=== PATIENT | male | born 1955 | race Caucasian/White ===

== ENCOUNTER 2022-12-23 16:16 | Emergency (ER) | payer MEDICARE, MEDICAID, SELFPAY ==
[2022-12-23 16:28] VITALS: BP 171/105; PULSE 93; RESP 18; TEMP 36.9; O2SAT 91; BMI 25.8
--- NOTE | 2022-12-23 16:29 | ED.GENADULT ---
HPI - General Adult General Chief complaint: Allergic Reaction Stated complaint: bee sting allergic reaction Time Seen by Provider: 12/23/22 19:42 Source: patient Mode of arrival: ambulatory Limitations: no limitations Related Data Allergies Allergy/AdvReac Type Severity Reaction Status Date / Time bee pollen [BEE STINGS] Allergy Unknown ANAPHYLAXIS Verified 12/23/22 16:31 Physical Exam ED Vital Signs: Vital Signs - 24 hr 12/23/22 16:28 Temperature 98.5 F Pulse Rate 93 Respiratory Rate 18 Blood Pressure 171/105 H Pulse Oximetry 91 L Oxygen Delivery Method Room Air BMI result Body Mass Index 25.8 Course Course Course Narrative: This is an RME: Additional HPI, ROS, PE not included below will be deferred to primary provider. Lef ear swelling sp bee stink 1 hour ago. No cp,sob, nausea, vomiting Medications Administered Discontinued Medications Generic Name Dose Route Start Last Admin Trade Name Freq PRN Reason Stop Dose Admin Diphenhydramine HCl 50 mg 12/23/22 16:29 12/23/22 16:34 Diphenhydramine Hcl 25 Mg Capsule PO 12/23/22 16:30 50 mg ONCE ONE Administration Famotidine 20 mg 12/23/22 19:54 12/23/22 19:59 Famotidine 20 Mg Tablet PO 12/23/22 19:55 20 mg ONCE ONE Administration Prednisone 60 mg 12/23/22 19:54 12/23/22 19:59 Prednisone 20 Mg Tablet PO 12/23/22 19:55 60 mg ONCE ONE Administration
[2022-12-23] MEDS: diphenhydrAMINE HCL 25 MG CAPSULE 50 MG PO (16:34)
--- NOTE | 2022-12-23 19:58 | ED_ITS ---
HPI - Allergic Reaction General Chief complaint: Allergic Reaction Stated complaint: bee sting allergic reaction Time Seen by Provider: 12/23/22 19:42 Source: patient Mode of arrival: ambulatory Limitations: no limitations History of Present Illness HPI narrative: Patient comes to emergency room complaining of an allergic reaction, patient got stung by a bee behind his left ear. Patient states that usually he is very allergic to bee stings. This time, patient also had a mild rash. Patient was given Benadryl in the emergency room when he arrived and patient states that now he has no rash or itching. Today, patient had no difficulty breathing, wheezing or swallowing. At this time, patient states that he feels it almost back to baseline. Related Data Previous Rx's Medication Instructions Recorded diphenhydramine HCl 25 mg capsule 50 mg (2 x 25 mg) PO BEDTIME PRN 12/23/22 (Benadryl) allergic reaction #4 caps famotidine 40 mg tablet (Pepcid) 40 mg PO DAILY PRN allergic 12/23/22 reaction #2 tabs prednisone 50 mg tablet 50 mg PO DAILY PRN allergic 12/23/22 reaction #2 tabs Allergies Allergy/AdvReac Type Severity Reaction Status Date / Time bee pollen [BEE STINGS] Allergy Unknown ANAPHYLAXIS Verified 12/23/22 16:31 Review of Systems Review of Systems: Constitutional : No Weight loss, No Fever, No Chills, No Night Sweats, No Fatigue, No Malaise ENT/Mouth : No Hearing loss, No Ear Pain, No Nasal Congestion, No Sinus Pain, No Hoarseness, No sore throat, No Rhinorrhea, No Swallowing Difficulty Eyes: No Eye Pain, No Swelling, No Redness, No Foreign Body, No Discharge, No Vision Changes Cardiovascular : No Chest Pain, No SOB, No Dyspnea on Exertion, No Orthopnea, No Edema, No Palpitations Respiratory : No Cough, No Sputum, No Wheezing, No Smoke Exposure, No Dyspnea Gastrointestinal : No Nausea, No Vomiting, No Diarrhea, No Constipation, No abdominal Pain, No Hematochezia, No Melena Genitourinary : no irregular bleeding, No Dysuria, No Urinary Frequency, No Hematuria, No Urinary Incontinence, No Urgency, No Flank Pain, No Urinary Flow Changes, No Hesitancy Musculoskeletal : No joint pain, No Myalgias, No Joint Swelling Skin : Complaining of a bee sting to the skin on the left Neuro : No Weakness, No Numbness, No Paresthesias, No Loss of Consciousness, No Dizziness, No Headache Psych : No Anxiety/Panic, No Depression, No SI/HI/AH/VH, No Social Issues, Heme/Lymph: No Bruising, No Bleeding,No Lymphadenopathy Endocrine : No Polyuria, No Polydipsia, No Temperature Intolerance Physical Exam ED Vital Signs: Vital Signs - 24 hr 12/23/22 16:28 Temperature 98.5 F Pulse Rate 93 Respiratory Rate 18 Blood Pressure 171/105 H Pulse Oximetry 91 L Oxygen Delivery Method Room Air BMI result Body Mass Index 25.8 Const Other: Appearance: Alert. Oriented X3. No acute distress. Eyes: Pupils equal, round and reactive to light. ENT: Pharynx normal. Neck: Normal inspection. Neck supple. No lymph nodes noted. No crepitus CVS: Normal heart rate and rhythm. Pulses normal. Normal S1 and S2 Respiratory: No respiratory distress. Breath sounds normal. No Wheezing. No rales Abdomen: Soft and nontender. No rigidity. No distention. Skin: Skin warm and dry. Normal skin color. Normal skin turgor. Extremities: No lower extremity edema. No Lacerations. No Rash Neuro: Oriented X 3. No motor deficit. No sensory deficit. Moving all extremities. No slurred speech. CN 2 through 12 grossly intact Psych: calm, cooperative, normal affect Medications Administered Discontinued Medications Generic Name Dose Route Start Last Admin Trade Name Freq PRN Reason Stop Dose Admin Diphenhydramine HCl 50 mg 12/23/22 16:29 12/23/22 16:34 Diphenhydramine Hcl 25 Mg Capsule PO 12/23/22 16:30 50 mg ONCE ONE Administration Famotidine 20 mg 12/23/22 19:54 12/23/22 19:59 Famotidine 20 Mg Tablet PO 12/23/22 19:55 20 mg ONCE ONE Administration Prednisone 60 mg 12/23/22 19:54 12/23/22 19:59 Prednisone 20 Mg Tablet PO 12/23/22 19:55 60 mg ONCE ONE Administration Medical Decision Making Medical Decision Making [facility] Narrative: -patient was given a dose of Benadryl in the emergency department when he arrived. Patient longer having any symptoms. Also, additionally patient was given a dose of Pepcid p.o. and prednisone -patient ready for discharge. Differential Diagnosis Differential Diagnoses: The differential diagnosis associated with the presentation includes (Bee sting, insect bite, allergic reaction) Discharge Plan Discharge Clinical Impression: Bee sting Patient Disposition: Home, Self-Care Instructions: Insect Bite or Sting (ED) Additional Instructions: Please follow-up with your primary care physician tomorrow. If you have any worsening or new symptoms, please return to the emergency room or call 911 Prescriptions: New prednisone 50 mg tablet 50 mg PO DAILY PRN (Reason: allergic reaction) Qty: 2 0RF famotidine [Pepcid] 40 mg tablet 40 mg PO DAILY PRN (Reason: allergic reaction) Qty: 2 0RF diphenhydramine HCl [Benadryl] 25 mg capsule 50 mg PO BEDTIME PRN (Reason: allergic reaction) Qty: 4 0RF
[2022-12-23] MEDS: predniSONE 20 MG TABLET 60 MG PO (19:59)
[2022-12-23] MEDS: Famotidine 20 MG TABLET PO (19:59)
== END 2022-12-23 20:31 | disposition home or self-care (01) ==
LOC: HO.ED 20:31
PROVIDERS: Emergency Provider Emergency Medicine
DX: T63.441A Toxic effect of venom of bees, accidental (unintentional), initial encounter (principal); Y92.9 Unspecified place or not applicable
CPT/HCPCS: 99282; 99283

== ENCOUNTER 2023-06-30 12:19 | Outpatient (REF) | payer MEDICARE, MEDICAID, SELFPAY ==
[2023-06-30 14:36] LABS: Basophils Absolute Auto 0.1 X10*3/uL (0.0-0.2); Basophils Percent Auto 1.6 % (0-2); Eosinophils Absolute Auto 0.1 X10*3/uL (0.0-0.4); Eosinophils Percent Auto 1.1 % (0-4); Hematocrit 39.9 % (42.0-52.0); Imm Gran Abs Auto 0.08 X10*3/uL (0.00-0.03); Imm Gran Pct Auto 1.8 % (0.0-0.4); Lymphocytes Percent Auto 22.1 % (20-40); MANUAL DIFF FLAG SCAN; Mean Corpuscular HGB Conc 32.6 g/dl (31.0-36.0); Mean Corpuscular Hemoglobin 30.2 pg (27.0-33.0); Mean Corpuscular Volume 92.6 fL (80.0-98.0); Mean Platelet Volume 11.1 fL (9.4-12.4); Monocytes Percent Auto 21.9 % (2-11); Neutrophils Absolute Auto 2.3 x10*3/uL (2.0-8.3); Neutrophils Percent Auto 51.5 % (45-73); Platelet Count 117 X10*3/uL (160-400); Red Blood Count 4.31 X10*6/uL (4.60-5.80); Red Cell Distribution Width 14.5 % (11.0-16.0); SCAN SMEAR FLAG 1; White Blood Count 4.4 X10*3/uL (4.8-10.8)
[2023-06-30 14:40] LABS: Alanine Aminotransferase 19 U/L (0-40); Albumin Level 3.9 g/dL (3.5-5.0); Alkaline Phosphatase 94 U/L (39-117); Anion Gap 14 (12-20); Aspartate Amino Transferase 22 U/L (5-37); Bilirubin Total 0.2 mg/dL (0.0-1.0); Blood Urea Nitrogen 13 mg/dL (9-16); Calcium 8.9 mg/dL (8.4-10.2); Carbon Dioxide 27 mmol/L (22-29); Chloride 108 mmol/L (96-108); Estimated Glomerular Filt Rate > 60; Glucose Random 116 mg/dL (60-115); Sodium 145 mmol/L (135-145); Total Protein 6.3 g/dL (6.5-8.0)
[2023-06-30 14:53] LABS: SLIDE REVIEW VERIFIED
[2023-06-30 14:59] LABS: PSA,Total (Free>4and<10) 1.66 ng/mL (0.00-4.00)
== END 2023-06-30 12:20 | disposition home or self-care (01) ==
LOC: HO.CHCLDS 12:19
PROVIDERS: Visit Provider Internal Medicine
DX: M15.9 Polyosteoarthritis, unspecified (principal); N40.0 Benign prostatic hyperplasia without lower urinary tract symptoms; M25.532 Pain in left wrist; K40.90 Unilateral inguinal hernia, without obstruction or gangrene, not specified as recurrent; Z12.5 Encounter for screening for malignant neoplasm of prostate
CPT/HCPCS: 36415; 80053; 84153; 85025

== ENCOUNTER 2023-07-20 08:56 | Outpatient (AMB) | payer MEDICARE, MEDICAID, SELFPAY ==
--- NOTE | 2023-07-20 08:57 | A.OFFVIS_ITS ---
Vital Signs 07/20/23 09:16 Height 5 ft 7 in Weight 168 lb BMI 26.3 BP 159/83 H Blood Pressure Location Rt brachial Position Sitting Pulse 86 Intake Visit Reasons: inguinal hernia Intake Note: Patient referred for inguinal hernia. Hx of [facility] repair by Dr. Logan @ [facility]. Patient had to do a short course of lovenox after previous hernia surgery. Patient c/o: LLQ pain. Bulges out and has been able to push it back in but pain getting worse with time. 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 He has had this proximally 1 year's time. His increasing size,, symptomatic. With straining and coughing developed a bulge which will usually reduced itself. Patient has no other GI issues or complaints. He is quite active and does appreciable heavy lifting. Chart was reviewed patient evaluated. Patient has complex past history including right breast mastectomy for metastatic breast cancer. He had prior right inguinal hernia repair. 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 Status post right mastectomy. Well healed scar with radiation changes on the skin GI Other: Patient was examined both supine and standing with Valsalva. Right groin negative. Abdomen is soft, scaphoid, benign. Small irreducible/incarcerated umbilical hernia measuring approximately 2 cm in size. Moderately sized, reducible left inguinal hernia. Genitalia grossly within normal limits. Assessment & Plan Assessment & Plan (1) Umbilical hernia, incarcerated: Code(s): K42.0 - Umbilical hernia with obstruction, without gangrene Category: Surgical (2) Left inguinal hernia: Code(s): K40.90 - Unilateral inguinal hernia, without obstruction or gangrene, not s pecified as recurrent Category: Surgical Plan I discussed with the patient the risks, benefits, and alternatives of open left inguinal hernia repair with mesh under MAC which included but not limited to bleeding, infection, recurrence, numbness, pain, scarring the patient wished to proceed. Patient also has the incidentally found incarcerated umbilical hernia which he would like to have repaired at the same time. Risks, benefits and alternatives of open umbilical hernia repair with mesh reviewed with the patient and this also included but not limited to bleeding, infection, recurrence, numbness, pain, scarring, bowel injury and the patient wishes to proceed as well. All questions answered. Arrangements made for this. Coding Level of Care Code New Pt Level 5 (46953) Diagnoses Umbilical hernia, incarcerated K42.0 Left inguinal hernia K40.90
[2023-07-20 09:16] VITALS: BP 159/83; PULSE 86; BMI 26.3
== END 2023-07-20 09:36 | disposition home or self-care (01) ==
PROVIDERS: PCP Internal Medicine; Visit Provider Surgery
DX: K42.0 Umbilical hernia with obstruction, without gangrene (principal); K40.90 Unilateral inguinal hernia, without obstruction or gangrene, not specified as recurrent
CPT/HCPCS: 99204

== ENCOUNTER → 2023-07-20 08:56 | Outpatient (BNVA) | payer MEDICARE, MEDICAID, SELFPAY | PROVIDERS: PCP Internal Medicine; Visit Provider Surgery | DX: K42.0 Umbilical hernia with obstruction, without gangrene (principal); K40.90 Unilateral inguinal hernia, without obstruction or gangrene, not specified as recurrent | CPT/HCPCS: 99202 ==

== ENCOUNTER 2023-08-04 07:21 | Day surgery (SDC) | payer MEDICARE, MEDICAID, SELFPAY ==
--- NOTE | 2023-08-02 13:18 | HO.ANESPROP2 ---
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 Breast cancer of right male breast metastasized to axillary lymph node Surgical History Surgical History (Updated 07/20/23 @ 09:33 by Jamie Abarca MD) History of mastectomy (~08/08/19) Social History Social History (Updated 07/20/23 @ 09:16 by ZULEYKA Quintana) Alcohol intake: never Patient Tobacco Use Status: Former Tobacco user Use of substances other than those prescribed or required for medical reasons: No Are you DNR?: No Advance Directives: No Advance Directives Information Provided: Yes Meds Allergies Allergy/AdvReac Type Severity Reaction Status Date / Time bee pollen [BEE STINGS] Allergy Unknown ANAPHYLAXIS Verified 07/20/23 09:05 Steri-Strips AdvReac Intermediate Blister Uncoded 07/20/23 09:30 Home Medications ?Medication ?Instructions ?Recorded ?Confirmed ?Last Taken ?Type epinephrine 0.3 mg/0.3 mL IM 07/20/23 07/20/23 Unknown History injection, auto-injector tamoxifen 20 mg tablet 20 mg PO DAILY 07/20/23 07/20/23 Unknown History Exam Pertinent Lab Results Pertinent Lab Results: Laboratory Tests 06/30/23 06/30/23 12:00 12:20 WBC 4.4 L Hgb 13.0 L Hct 39.9 L Plt Count 117 L Sodium 145 Potassium 4.0 Chloride 108 Carbon Dioxide 27 BUN 13 Creatinine 0.75 Assessment and Plan Assessment Anesthesia Assessment: Chart Reviewed Documented by User: Shanice Skaggs MD 08/04/23 09:18 ON LICENSE OF [facility] Past Medical History Medical History (Updated 07/20/23 @ 09:10 by ZULEYKA Quintana) 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 Breast cancer of right male breast metastasized to axillary lymph node Family History Family history of problems with anesthesia: No Surgical History Surgical History (Updated 07/20/23 @ 09:33 by Jamie Abarca MD) History of mastectomy (~08/08/19) History of Problems with Anesthesia: No Social History Social History (Updated 07/20/23 @ 09:16 by ZULEYKA Quintana) Alcohol intake: never Patient Tobacco Use Status: Former Tobacco user Use of substances other than those prescribed or required for medical reasons: No Are you DNR?: No Advance Directives: No Advance Directives Information Provided: Yes Meds Allergies Allergy/AdvReac Type Severity Reaction Status Date / Time bee pollen [BEE STINGS] Allergy Unknown ANAPHYLAXIS Verified 07/20/23 09:05 Steri-Strips AdvReac Intermediate Blister Uncoded 07/20/23 09:30 Home Medications ?Medication ?Instructions ?Recorded ?Confirmed ?Last Taken ?Type epinephrine 0.3 mg/0.3 mL IM 07/20/23 07/20/23 Unknown History injection, auto-injector tamoxifen 20 mg tablet 20 mg PO DAILY 07/20/23 07/20/23 Unknown History Exam Airway Mallampati Class: III TM Dist: >3cm Neck ROM: Limited Loose/Missing/Broken Teeth: Yes and Upper (missing upper front, loose upper left, missing bilateral back) Heart: rrrcta Assessment and Plan Assessment Anesthesia Assessment: Anesthesia Plan Discussed Final Anesthetic Review Family History of Problems with Anesthesia: No History of Problems with Anesthesia: No NPO: Yes ASA Class: III Final Preanesthetic Review: No Changes in Pt Med Stat, Meds/Allgs Chart Reviewed, Consent Obtained/Reviewed and Anes Risks/Benef Reviewed Patient Risk: Intermediate Procedure Risk: Intermediate Anesthetic Plan Anesthetic Plan: GA Disposition: Standard PACU
--- NOTE | 2023-08-03 11:28 | MHC.SHP ---
Pre-Procedural Eval Section A - 24 Hr Update-Section A only Date of Service: 08/04/23 The patient is an INPATIENT: No Changes since office visit: No Cold of Flu in the past 2 weeks, No New Medical Problems, No Changes in Medication and No Patient answered all questions Section B - Complete if H&P > 30 days Chief Complaint: Unilateral inguinal hernia, without obstruction or Allergies: Allergies Allergy/AdvReac Type Severity Reaction Status Date / Time bee pollen [BEE STINGS] Allergy Unknown ANAPHYLAXIS Verified 07/20/23 09:05 Steri-Strips AdvReac Intermediate Blister Uncoded 07/20/23 09:30 Plan I have reviewed the history and physical and performed a pertinent physical examination on my patient. No changes have occurred unless specified. Time Spent With Patient Time: Total time managing care of this patient today ____ minutes.
[2023-08-04 07:32] VITALS: BMI 27.0
[2023-08-04 07:56] VITALS: BP 165/93; PULSE 80; RESP 16; TEMP 36.5; O2SAT 95
[2023-08-04] MEDS: Lactated Ringers 1,000 ML 100 ML IVCONT (07:58)
--- NOTE | 2023-08-04 10:37 | P.OP_ITS ---
Operative Note Operative Note Date of Service: 08/04/23 Narrative: Preoperative diagnosis: [] 1. Left inguinal hernia 2. Incarcerated umbilical hernia Postop diagnosis: [] Postop diagnosis same Procedure [] 1. Open repair left inguinal hernia with Bard mesh 2. Open repair incarcerated umbilical hernia with Bard mesh Surgeon: [] Tevin [employer] Specialty Cook: [] [place] Type of Anesthesia: [] General Indication for surgery: [] Large indirect left Inguinal hernia. 2 cm incarcerated umbilical hernia with omental contents Findings: [] Patient brought to the operating room, placed on operative table in supine position, after an adequate level of general anesthesia was induced, the patient's abdomen and left groin were prepped and draped in usual sterile fashion. Commencing in the left groin, a small left para inguinal incision was made and carried down through skin, subcutaneous tissue, Patricia's fascia. External oblique fibers were opened their direction with care to isolate and preserve the ilioinguinal nerve throughout the procedure. Spermatic cord was identified and retracted from the field. No direct hernia was demonstrated. A large indirect hernia sac was from the spermatic cord and reduced. A Bard plug was placed in the indirect defect, and sutured inferiorly to the inguinal ligament, and superiorly to the transversalis fascia using interrupted 0 Ethibond suture. At completion, graft also covered inguinal floor and had no tension or gaps. Wound was irrigated, secured hemostasis, and closed in the following manner; external oblique fascia was reapproximated using a running 2-0 Vicryl suture. Patricia's fascia was closed using interrupted 3-0 Vicryl sutures. Interrupted inverted deep dermal 3-0 Vicryl sutures followed by running subcuticular 4-0 Vicryl sutures were placed. Dermabond was then placed. Next the umbilical hernia was approached using an infraumbilical curvilinear incision and carried down through skin, subcutaneous tissue, where hernia sac was identified and dissected off the posterior aspect of the umbilicus down to the fascia. Sac was opened were incarcerated omental contents were amputated using Bovie. Fascia margins were cleared. A Bard mesh was placed in this defect, and the superficial layer of the mesh circumferentially sutured to the surrounding fascia using interrupted 0 Ethibond suture. At completion of the procedure, mesh was in good position with no gaps. Wound was irrigated, secured hemostasis, and closed in the following manner; posterior aspect of the umbilicus was tacked to the wound floor using interrupted 3-0 Vicryl suture. Skin was closed using interrupted inverted dermal 3-0 Vicryl sutures followed by Steri-Strips and sterile dressings. Both incisions were infiltrated with 0.5% Marcaine at the beginning at the end of the case. Sponge, needle, and instrument counts reported correct. Patient tolerated the procedure well and emerged from anesthesia stable condition. EBL minimal. Ipsilateral testicle was intrascrotal at completion.
[2023-08-04 10:38] VITALS: BP 132/77; PULSE 80; RESP 16; TEMP 36.9; O2SAT 96
[2023-08-04 10:43] VITALS: BP 145/79; PULSE 69; RESP 14; O2SAT 97
[2023-08-04 10:48] VITALS: BP 152/79; PULSE 66; RESP 16; O2SAT 97
[2023-08-04 10:53] VITALS: BP 148/81; PULSE 79; RESP 12; O2SAT 94
[2023-08-04 11:08] VITALS: BP 156/80; PULSE 74; RESP 16; TEMP 36.8; O2SAT 96
== END 2023-08-04 11:55 | disposition home or self-care (01) ==
PROVIDERS: PCP Internal Medicine; Visit Provider Surgery
PROC: (CPT 49505; principal; 2023-08-04 09:40)
PROC: (CPT 49505; 2023-08-04 09:40)
DX: K40.90 Unilateral inguinal hernia, without obstruction or gangrene, not specified as recurrent (principal); K42.0 Umbilical hernia with obstruction, without gangrene; C50.921 Malignant neoplasm of unspecified site of right male breast; C77.3 Secondary and unspecified malignant neoplasm of axilla and upper limb lymph nodes; Z79.810 Long term (current) use of selective estrogen receptor modulators (SERMs); Z90.11 Acquired absence of right breast and nipple; Z87.891 Personal history of nicotine dependence
CPT/HCPCS: 49505; 49592; 88304; C1781; J0131; J0690; J1100; J2250; J2405; J2704; J2795; J3010

== ENCOUNTER → 2023-08-04 07:21 | Outpatient (BNV) | payer MEDICARE, MEDICAID, SELFPAY | PROVIDERS: PCP Internal Medicine; Visit Provider Surgery | DX: K40.90 Unilateral inguinal hernia, without obstruction or gangrene, not specified as recurrent (principal); K42.0 Umbilical hernia with obstruction, without gangrene | CPT/HCPCS: 49505; 49591 ==

== ENCOUNTER 2023-08-15 10:02 | Outpatient (AMB) | payer MEDICARE, MEDICAID, SELFPAY ==
--- NOTE | 2023-08-15 10:16 | A.OFFVIS_ITS ---
Intake Visit Reasons: S/P umbilical hernia w/mesh Intake Note: Patient here s/p umbilical hernia and LIH repair. Reports incisions healing well. Patient c/o: tenderness after some yard work. Only took ibuprofen no rx pain meds. SX: 08-04-2023. 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 Patient is doing well. Slowly but steadily increasing his activity level. Tolerating his diet. Incisional discomfort improving. 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 Abdomen otherwise benign Assessment & Plan Assessment & Plan (1) Postop check: Code(s): Z09 - Encounter for follow-up examination after completed treatment for conditions other than malignant neoplasm Category: Surgical Plan Patient has been given local instructions including avoiding strenuous activities next few weeks time otherwise follow-up p.r.n.. All questions answered. Coding Level of Care Code Global (63441) Diagnoses Postop check Z09
== END 2023-08-15 10:29 | disposition home or self-care (01) ==
PROVIDERS: PCP Internal Medicine; Visit Provider Surgery
DX: Z09 Encounter for follow-up examination after completed treatment for conditions other than malignant neoplasm (principal)
CPT/HCPCS: 99024

== ENCOUNTER → 2023-08-15 10:02 | Outpatient (BNVA) | payer MEDICARE, MEDICAID, SELFPAY | PROVIDERS: PCP Internal Medicine; Visit Provider Surgery | DX: Z09 Encounter for follow-up examination after completed treatment for conditions other than malignant neoplasm (principal); Z87.19 Personal history of other diseases of the digestive system | CPT/HCPCS: 99212 ==

== ENCOUNTER 2024-07-03 11:35 | Outpatient (REF) | payer MEDICARE, MEDICAID, SELFPAY ==
--- OUTSIDE RECORDS SUMMARY | 2024-07-03 12:15 | XMS_ITS | Clinical Summary ---
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 Overview (02/27/2020): CHILD, TB EXPOSURE IN [place] Rheumatoid arthritis 10/12/2019 Peptic ulcer 10/10/2019 Generalized degenerative joint disease 0 Malignant tumor of breast 10/10/2019 Social History Tobacco Use Types Packs/Day Years Used Date Smoking Tobacco: Former Cigarettes Q uit: 06/2019 Smokeless Tobacco: Never Alcohol Use Standard Drinks/Week Comments Not Currently 0 (1 standard drink = 0.6 oz pur e alcohol) Sex and Gender Information Value Date Recorded Sex Assigned at Not on file Legal Sex Male 11:30 AM EDT Gender Identity Not on file Sexual Orientation Not on file Last Filed Vital Signs Vital Sign Reading Time Taken Comments Blood Pressure 152/82 03/06/2020 10:42 AM EST Pulse 96 03/06/2020 10:42 AM EST Temperature 36.4 ??C (97.5 ??F) 03/06/2020 10:[address] Respiratory Rate 16 03/06/2020 10:42 AM EST Oxygen Saturation 96% 03/06/2020 10:42 AM EST Inhaled Oxygen Concentration - - Weight 79.4 kg (175 lb) 03/06/2020 10:42 AM EST Height 167.6 cm (5' 6 ) 03/06/2020 10:42 AM EST Body Mass Index 28.25 03/06/2020 10:42 AM EST Plan of Treatment Health Maintenance Due Date Last Done Comments Pneumococcal Vaccine: 50+ Ye ars (1 of 2 - PCV) 1972 Colorectal Cancer Screening: Annual FOBT 2002 Colorectal Cancer Screening: Colonoscopy 2002 Colorectal Cancer Screening: Sigmoidoscopy 2002 Influenza Vaccine (Season Ended) 2024 Hepatitis B Vaccine Aged Out No longe r eligible based on patient's age to complete this topic Insurance Medicare Medicaid [place] Care Teams Production Associate Relationship Specialty Start Date End Date Stu Salmeron MD PCP - General Internal Medicine 02/27/20
[2024-07-03 14:33] LABS: MANUAL DIFF FLAG NO
[2024-07-03 14:36] LABS: Basophils Absolute Auto 0.1 X10*3/uL (0.0-0.2); Basophils Percent Auto 1.5 % (0-2); Eosinophils Absolute Auto 0.1 X10*3/uL (0.0-0.4); Eosinophils Percent Auto 2.1 % (0-4); Hematocrit 42.2 % (42.0-52.0); Hemoglobin 14.4 g/dl (14.0-18.0); Imm Gran Abs Auto 0.04 X10*3/uL (0.00-0.03); Imm Gran Pct Auto 0.6 % (0.0-0.4); Lymphocytes Absolute Auto 1.7 X10*3/uL (1.2-4.9); Lymphocytes Percent Auto 25.1 % (20-40); Mean Corpuscular HGB Conc 34.1 g/dl (31.0-36.0); Mean Corpuscular Hemoglobin 29.5 pg (27.0-33.0); Mean Corpuscular Volume 86.5 fL (80.0-98.0); Mean Platelet Volume 11.1 fL (9.4-12.4); Monocytes Absolute Auto 0.7 X10*3/uL (0.1-1.2); Monocytes Percent Auto 10.1 % (2-11); Neutrophils Absolute Auto 4.1 x10*3/uL (2.0-8.3); Neutrophils Percent Auto 60.6 % (45-73); Platelet Count 149 X10*3/uL (160-400); Red Blood Count 4.88 X10*6/uL (4.60-5.80); Red Cell Distribution Width 13.5 % (11.0-16.0); White Blood Count 6.8 X10*3/uL (4.8-10.8)
[2024-07-03 14:54] LABS: Cholesterol 140 mg/dL (<200); HDL Cholesterol 51 mg/dL (>40); LDL Cholesterol Calculated 78 mg/dL (<100); Triglycerides 55 mg/dL (<150)
[2024-07-03 15:09] LABS: PSA,Total (Free>4and<10) 2.69 ng/mL (0.00-4.00)
[2024-07-03 15:11] LABS: TSH reflex Free T4 2.35 uIU/mL (0.32-4.0)
[2024-07-04 09:17] LABS: ~HepC Num1 7.88 S/CO (0.00-0.79); ~Hepatitis C Antibody Reactive (Nonreactive)
[2024-07-05 17:13] LABS: HCV Log PCR 6.99 Log IU/mL (NOT DETECTED); HepC Viral Load 9690000 IU/mL (NOT DETECTED)
== END 2024-07-03 11:36 | disposition home or self-care (01) ==
LOC: HO.CHCLDS 11:35
PROVIDERS: Visit Provider Internal Medicine
DX: D50.9 Iron deficiency anemia, unspecified (principal); I10 Essential (primary) hypertension; N40.0 Benign prostatic hyperplasia without lower urinary tract symptoms; Z12.5 Encounter for screening for malignant neoplasm of prostate
CPT/HCPCS: 36415; 80061; 84153; 84443; 85025; 86803; 87522

== ENCOUNTER 2024-07-09 12:49 | Outpatient (REF) | payer MEDICARE, MEDICAID, SELFPAY ==
--- OUTSIDE RECORDS SUMMARY | 2024-07-09 13:49 | XMS_ITS | Encounter Summary ---
Author Organization [facility] Address [address] [place] [id number] Care Team Providers Care Goggles Assembler Name Role Phone Stu Salmeron MD Primary Care Provider [phone] Encounter Details Date Type Department Care Team (Late st Contact Info) Description 07/07/2023 Orders Only [facility] [address] [place], [place] [id number] ProviderLoli MD Social History Tobacco Use Types Packs/Day Years Used Date Smoking Tobacco: Former Cigarettes 1.5 54 1 966 - 2019 Smokeless Tobacco: Never Depression Answer Date Recorded Patient Health Questionnaire-9 Score 0 06/30/2023 Patient Health Questionnaire-9 Score 0 06/30/2023 Last PHQ-9: Questionnaire Data Not on file 0 06/30/2023 Depression Answer Date Recorded Patient Health Questionnaire-2 Score 0 06/30/2023 Sex and Gender Information Value Date Recorded Sex Assigned at Male 12/07/2021 10:37 AM EDT Legal Sex Male 10:37 AM EDT Gender Identity Male 12/07/2021 10:37 AM EDT Sexual Orientation Straight 12/07/2021 10 :37 AM EDT documented as of this encounter Plan of Treatment Upcoming Encounters Date Type Department Care Team (Late st Contact Info) Description 10/03/2024 10:30 AM EDT Office Visit [facility] [address] [place] [address] Stu Salmeron MD [address] [place] [address] documented as of this encounter Procedures Procedure Name Priority Date/Time Associated Diagnosis Comments COLONOSCOPY Routine 12/09/2020 12:29 PM EDT documented in this encounter Results * Colonoscopy (12/09/2020 12:29 PM EDT) Anatomical Region Laterality Modality Endoscopy us Historical Provider ENDOSCOPY PROCEDURE ORDER KAYLEE Final Result documented in this encounter Visit Diagnoses Not on filedocumented in this encounter Additional Health Concerns Assessment Noted Time PHQ-9 Depression Total Score: 0 06/30/19 24 11:39 AM EDT documented as of this encounter Care Teams Goggles Assembler Relationship Specialty Start Date End Date Stu Salmeron MD [address] [place] [phone] PCP - General Internal Medicine 08/21/19 documented as of this encounter
[2024-07-09 14:19] LABS: MANUAL DIFF FLAG NO
[2024-07-09 14:29] LABS: Basophils Absolute Auto 0.1 X10*3/uL (0.0-0.2); Basophils Percent Auto 1.9 % (0-2); Eosinophils Absolute Auto 0.2 X10*3/uL (0.0-0.4); Eosinophils Percent Auto 3.6 % (0-4); Hematocrit 42.2 % (42.0-52.0); Hemoglobin 14.2 g/dl (14.0-18.0); Imm Gran Abs Auto 0.06 X10*3/uL (0.00-0.03); Lymphocytes Absolute Auto 1.6 X10*3/uL (1.2-4.9); Lymphocytes Percent Auto 25.6 % (20-40); Mean Corpuscular HGB Conc 33.6 g/dl (31.0-36.0); Mean Corpuscular Hemoglobin 29.5 pg (27.0-33.0); Mean Corpuscular Volume 87.7 fL (80.0-98.0); Mean Platelet Volume 11.4 fL (9.4-12.4); Monocytes Absolute Auto 0.6 X10*3/uL (0.1-1.2); Monocytes Percent Auto 10.1 % (2-11); Neutrophils Absolute Auto 3.6 x10*3/uL (2.0-8.3); Neutrophils Percent Auto 57.8 % (45-73); Platelet Count 123 X10*3/uL (160-400); Red Blood Count 4.81 X10*6/uL (4.60-5.80); Red Cell Distribution Width 13.6 % (11.0-16.0); White Blood Count 6.2 X10*3/uL (4.8-10.8)
[2024-07-09 14:55] LABS: Alanine Aminotransferase 26 U/L (0-40); Albumin Level 4.2 g/dL (3.5-5.0); Alkaline Phosphatase 90 U/L (39-117); Anion Gap 10 (12-20); Aspartate Amino Transferase 59 U/L (5-37); Bilirubin Total 0.3 mg/dL (0.0-1.0); Blood Urea Nitrogen 17 mg/dL (9-16); Calcium 9.1 mg/dL (8.4-10.2); Carbon Dioxide 30 mmol/L (22-29); Chloride 110 mmol/L (96-108); Estimated Glomerular Filt Rate > 60; Glucose Random 124 mg/dL (60-115); Potassium 3.9 mmol/L (3.3-5.1); Sodium 146 mmol/L (135-145); Total Protein 6.7 g/dL (6.5-8.0)
[2024-07-10 08:16] LABS: ~Hepatitis B Surface Antibody NONREACTIVE (Nonreactive)
[2024-07-13 05:30] LABS: Hepatitis A Antibody IgG Nonreactive (Nonreactive); ~Hepatitis A Antibody IgG 0.23 S/CO (0.00-0.99)
[2024-07-13 12:24] LABS: Hepatitis C Genotype 2 (Not Detected)
== END 2024-07-09 12:50 | disposition home or self-care (01) ==
LOC: HO.CHCLDS 12:49
PROVIDERS: Visit Provider Family Medicine
DX: B19.20 Unspecified viral hepatitis C without hepatic coma (principal); Z72.89 Other problems related to lifestyle
CPT/HCPCS: 36415; 80053; 85025; 86706; 86708; 87902

== ENCOUNTER 2024-07-10 08:52 | Outpatient (REF) | payer MEDICARE, MEDICAID, SELFPAY ==
--- OUTSIDE RECORDS SUMMARY | 2024-07-10 09:31 | XMS_ITS | Encounter Summary ---
Author Organization [employer] [facility] Address [address] [place] [address] Care Team Providers Care Behavioral Health Specialist Name Role Phone Stu Salmeron MD Primary Care Provider [phone] Encounter Details Date Type Department Care Team (Late st Contact Info) Description 07/07/2023 Orders Only [facility] MED & PEDS [address] [place], [place] [phone] ProviderLoli MD Social History Tobacco Use Types [...] Description 10/03/2024 10:30 AM EDT Office Visit [facility] MED & PEDS [address] [place] [address] Stu Salmeron MD [address] [place] [address] documented as of this encounter Procedures Procedure [...] documented as of this encounter Care Teams Behavioral Health Specialist Relationship Specialty Start Date End Date Stu Salmeron MD [address] [place] [address] PCP - General Internal Medicine 08/21/19 documented as of this encounter
[2024-07-16 14:13] LABS: FIB-ALT 17 U/L (9-46); FIB-Alpha-2-Macroglobulin 279 mg/dL (106-279); FIB-Apolipoprotein A1 174 mg/dL (94-176); FIB-GGT 12 U/L (3-70); FIB-Haptoglobin 56 mg/dL (43-212); FIB-Total Bilirubin 0.5 mg/dL (0.2-1.2); Liver Fibrosis Score 0.43; Liver Fibrosis Stage F1-F2; Nec Inflam Act Grade A0; Nec Inflam Act Score 0.07
== END 2024-07-10 08:53 | disposition home or self-care (01) ==
LOC: HO.LAB 08:52
PROVIDERS: PCP Internal Medicine; Visit Provider Family Medicine
DX: B19.20 Unspecified viral hepatitis C without hepatic coma (principal)
CPT/HCPCS: 36415; 81596

== ENCOUNTER 2024-07-16 09:05 | Outpatient (REF) | payer MEDICARE, MEDICAID, SELFPAY ==
--- OUTSIDE RECORDS SUMMARY | 2024-07-16 09:29 | XMS_ITS | Encounter Summary ---
Author Organization [employer] Address [address] [facility] 7t [place] [address] Care Team Providers Care News Broadcaster Name Role Phone Stu Salmeron MD Primary Care Provider [phone] Encounter Details Date Type Department Care Team (Late st Contact Info) Description 07/16/2024 Orders Only [facility] MEDICINE [address] [place] [address] Indy Epstein, LEROY [address] [place] [address] Hepatitis C virus infection without hepatic coma, unspecified chronicity; Encounter for screening for infections with a predominantly sexual mode of transmission; Other problems related to lifestyle Social History Tobacco Use Types Packs/Day Years Used Date Smoking Tobacco: Former Cigarettes 1.5 54 1 966 - 2019 Smokeless Tobacco: Never Depression Answer Date Recorded Patient Health Questionnaire-9 Score 0 07/03/2024 Patient Health Questionnaire-9 Score 0 07/03/2024 Last PHQ-9: Questionnaire Data Not on file 0 07/03/2024 Housing Stability Answer Date Recorded What is your housing situation today? I have haydee albarran 07/03/[address] you li ve. Do you have problems with any of the following? None of the above 07/03/2024 Food Insecurity Answer Date Recorded Within the past 12 months, y ou worried that your food would run out before you got money to buy more: Never True 07/03/2024 Within the past 12 months,th e food you bought just didn't last and you didn't have enough money to get more: Never True Transportation Answer Date Recorded In the past 12 months, has l ack of transportation kept you from medical appts, meetings, work or from getting things needed for daily living? No 07/03/2024 Utilities Answer Date Recorded In the past 12 months, has t he electric, gas, oil or water company threatened to shut off services in your home? No 07/03/2024 Depression Answer Date Recorded Patient Health Questionnaire-2 Score 0 07/03/2024 Internet Access Answer Date Recorded Internet Access Q1 Yes 07/03/2024 Internet Access Q2 Not on file 07/03/2024 Sex and Gender Information Value Date Recorded Sex Assigned at Male 12/07/2021 10:37 AM EDT Legal Sex Male 10:37 AM EDT Gender Identity Male 12/07/2021 10:37 AM EDT Sexual Orientation Straight 12/07/2021 10 :37 AM EDT documented as of this encounter Plan of Treatment Upcoming Encounters Date Type Department Care Team ([facility] Contact Info) Description 10/03/2024 10:30 AM EDT Office Visit [facility] MED & PEDS [address] [place] [address] Stu Salmeron MD [address] [place] [address] Scheduled Orders Name Type Priority Associated Diagnoses Orde r Schedule Hepatitis B surface antigen, EIA Lab Routine Hepatitis C virus infection without hepatic coma, unspecified chronicity Encounter for screening for infections with a predominantly sexual mode of transmission Expected: 07/16/2024 (Approximate), Expires: 07/16/2025 Hepatitis B Core Antibody, Total Lab Routine Hepatitis C virus infection without hepatic coma, unspecified chronicity Other problems related to lifestyle Expected: 07/16/2024 (Approximate), Expires: 07/16/2025 HIV-1/2 Antigen and Antibodies, Fourth Generation, with Reflexes Lab Routine Hepatitis C virus infection without hepatic coma, unspecified chronicity Expected: 07/16/2024 (Approximate), Expires: 07/16/2025 Prothrombin Time-INR Lab Routine Hepatitis C virus infection without hepatic coma, unspecified chronicity Expected: 07/16/2024 (Approximate), Expires: 07/16/2025 documented as of this encounter Visit Diagnoses Diagnosis Hepatitis C virus infection without hepatic coma, unspecified chronicity Encounter for screening for infections with a predominantly sexual mode of transmission Other problems related to lifestyle documented in this encounter Additional Health Concerns Assessment Noted Time PHQ-9 Depression Total Score: 0 07/04/19 25 10:55 AM EDT documented as of this encounter Care Teams News Broadcaster Relationship Specialty Start Date End Date Stu Salmeron MD [address] [place] [address] PCP - General Internal Medicine 08/21/19 documented as of this encounter
[2024-07-16 14:32] LABS: INTERNATIONAL NORM RATIO 1.1 (0.9-1.1); Prothrombin Time 12.8 SEC (10.9-12.4)
[2024-07-17 08:08] LABS: HBc Num1 0.07 S/CO (0.00-0.79); HBsAGNum1 0.44 S/CO (0.00-0.99); HIV AB/AG Nonreactive (Nonreactive); HIV Num 1 0.05 S/CO (0.00-0.99); Hepatitis B Core Antibody Nonreactive (Nonreactive); Hepatitis B Surface Antigen Negative (Negative)
== END 2024-07-16 09:06 | disposition home or self-care (01) ==
LOC: HO.CHCLDS 09:05
PROVIDERS: Visit Provider Family Medicine
DX: Z72.89 Other problems related to lifestyle (principal); B19.20 Unspecified viral hepatitis C without hepatic coma; Z11.3 Encounter for screening for infections with a predominantly sexual mode of transmission
CPT/HCPCS: 36415; 85610; 86704; 87340; 87389

== ENCOUNTER 2024-10-19 10:35 | Outpatient (AMB) | payer MEDICARE, MEDICAID, SELFPAY ==
--- NOTE | 2024-10-19 08:05 | MHC.OFFVIS ---
Intake Visit Reasons: Former Smoker Allergies bee pollen (BEE STINGS) Allergy (Unknown, Verified 08/15/23 10:17) ANAPHYLAXIS Steri-Strips Adverse Reaction (Intermediate, Uncoded 08/15/23 10:17) Blister HPI HPI Former Smoker: Details: Initial visit for this 68yo former smoker with a 70PYH. Patient started smoking at age 10 for 53 years at 1-1.5ppd. He quit 07/26/2019. . Denies marijuana use. Denies second hand smoke exposure. 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 Denies known family history of lung cancer. Denies personal history of cancers. Denies chest CT in last year. . Denies recent travel outside the [place]. Denies recent respiratory illness or recent hospitalization for respiratory issues. . Denies fever, chills, new/worsening cough, hemoptysis, hoarseness or dysphagia. Denies significant chest pain, significant dyspnea or unintentional weight loss. Patient Lung Cancer Screening Questionnaire reviewed with patient by provider. . Shared Decision Making Completed. Patient meets criteria. Discussed in detail with patient, the risk vs benefit of LDCT screening. Patient consents to proceed with scan. Discussed and encouraged continued smoking cessation. [facility] Medical History (Updated 10/19/24 @ 10:44 by Katja Loya PA-C) History of positive PPD History of hepatitis C Hypertension History of right breast cancer Personal history of nicotine dependence Surgical History (Updated 10/19/24 @ 10:42 by Katja Loya PA-C) History of fusion of cervical spine History of endoscopy History of cystoscopy History of surgical removal of ganglion cyst History of right mastectomy History of colonoscopy History of right inguinal hernia repair History of umbilical hernia repair History of left inguinal hernia repair Social History (Updated 10/19/24 @ 10:43 by Katja Loya PA-C) Alcohol intake: never Patient Tobacco Use Status: Former Tobacco user Years Smoked: (onset 10yo, 1ppd x 53yrs - 50pyh - quit 07/2019) Assessment & Plan Assessment & Plan (1) Personal history of nicotine dependence: Comment: (onset 10yo, 1ppd x 53yrs - 50pyh - quit 07/2019) Code(s): Z87.891 - Personal history of nicotine dependence Category: Medical Plan: - SDM visit completed today in office. - Patient meets criteria for LDCT for lung cancer screening purposes and is asymptomatic. - Smoking cessation counseling offered. Patients can always call [phone]. - Will arrange for a LDCT scan of the chest for screening purposes at [facility]. - Risks, benefits, and alternatives were discussed in detail and the patient agrees to proceed. - Risks discussed include but are not limited to: radiation exposure, anxiety during testing and while awaiting results, false negatives, false positives and possibility of additional intervention such as further imaging or surgical procedures for benign disease. - Benefits are obviously detection of lung cancer at an early stage which can lead to improved outcomes. - Discussed the importance of screening program compliance with adherence to yearly LDCT scan as scheduled - or sooner interval scans for personalized screening regimen. - Discussed follow up plan. Our office will send a letter discussing results and if needed set up phone call and office visit based on CT findings. - Patient educated on results categorization and the management decisions for suspicious findings potentially found on the screening LDCT scan. Any patient with a Lung RADS score of 3 or 4 will be reviewed by a multidisciplinary team at [facility] to form a plan of action in regards to scan findings. - If further work up is warranted for a suspicious lung finding this will be followed by the Lung Cancer Screening program in conjunction with the Thoracic Surgery Department at [facility]. - A copy of the office note and LDCT will be sent to the patient's PCP - as well as documentation on any associated further plans of care. - Incidental findings on LDCT are the PCP's responsibility. These findings are indicated with an S finding on the LDCT Assessment. A note discussing the findings will be sent to the PCP who is then responsible for further management. - All questions answered.? Coding Level of Care Code Lung Cancer Screening G0296 Diagnoses Personal history of nicotine dependence Z87.891
--- OUTSIDE RECORDS SUMMARY | 2024-10-19 12:13 | XMS_ITS | Encounter Summary ---
Author Organization [employer] Address [address] [facility] 7t [place] [address] Care Team Providers Care Stock Drier Tender Name Role Phone Stu Salmeron MD Primary Care Provider [phone] Encounter Details Date Type Department Care Team (Latest Contact Info) Description 10/18/2024 Travel Social History Tobacco Use Types Packs/Day Years [...] Upcoming Encounters Date Type Department Care Team ([facility] st Contact Info) Description 10/25/2024 1:00 PM EDT Clinical Support [facility] MED & PEDS [address] [place] [address] 02/04/2025 10:00 AM EST Clinical Support [facility] MED & PEDS [address] [place] [address] documented as of this encounter Visit Diagnoses Not on filedocumented in this encounter Additional Health Concerns Assessment Noted Time PHQ-9 Depression Total Score: 0 07/04/19 25 10:55 AM EDT documented as of this encounter Care Teams Stock Drier Tender Relationship Specialty Start Date End Date Stu Salmeron MD [address] [place] [address] PCP - General Internal Medicine 08/21/19 documented as of this encounter
--- OUTSIDE RECORDS SUMMARY | 2024-10-19 12:13 | XMS_ITS | Encounter Summary ---
Author Organization [employer] Address [address] [place] [address] [place] [address] Care Team Providers Care Pivot End Polisher Name Role Phone Stu Salmeron MD Primary Care Provider [phone] Reason for Visit * Reason Onset Date Comments Referral 08/18/2022 Encounter Details Date Type Department Care Team ([facility] Contact Info) Description 08/18/2022 Telephone [facility] MED & PEDS [address] [place], [place] [phone] Stu Salmeron MD [address] [place] [address] Referral Social History Tobacco Use Types Packs/Day Years Used Date Smoking Tobacco: Former Cigarettes 1.5 54 1 966 - 2019 Smokeless Tobacco: Never Sex and Gender Information Value Date Recorded Sex Assigned at Male 12/07/2021 10:37 AM EDT Legal Sex Male 10:37 AM EDT Gender Identity Male 12/07/2021 10:37 AM EDT Sexual Orientation Straight 12/07/2021 10 :37 AM EDT COVID-19 Exposure Response Date Recorded In the last 10 days, have yo u been in contact with someone who was confirmed or suspected to have Coronavirus/COVID-19? No / Unsure 08/11/2022 5:08 PM EDT documented as of this encounter Miscellaneous Notes * Telephone Encounter - Alice Kirkpatrick - 08/19/2022 9:47 AM EDT Referral faxed to Dr. Kenyon office. Appointment pending. * Telephone Encounter - Reg Rae - 08/18/2022 11:13 AM EDT Tc from pt requesting status on referral made on 08/12/2022 for Orthopaedic Surgery. [employer] Principal sees that referral is still pending. Please contact pt at [phone] documented in this encounter Plan of Treatment Upcoming Encounters Date Type Department Care Team (Late st Contact Info) Description 10/25/2024 1:00 PM EDT Clinical Support [facility] MED & PEDS [address] [place] [address] 02/04/2025 10:00 AM EST Clinical Support [facility] MED & PEDS [address] [place] [address] documented as of this encounter Visit Diagnoses Not on filedocumented in this encounter Care Teams Pivot End Polisher Relationship Specialty Start Date End Date Stu Salmeron MD [address] [place] [address] PCP - General Internal Medicine 08/21/19 documented as of this encounter
--- OUTSIDE RECORDS SUMMARY | 2024-10-19 12:13 | XMS_ITS | Clinical Summary ---
Author Organization [facility], Address [address] [place] [address] Phone Care Team Providers Care Stock Speculator Name Role Phone Stu Salmeron MD Primary Care Provider [phone] Allergies Active Allergy Reactions Criticality Noted Date [...] 96 03/06/2020 10:42 AM EST Temperature 36.4 C (97.5 F) 03/06/2020 10:42 AM EST Respiratory Rate 16 03/06/2020 10:42 AM EST [...] Colorectal Cancer Screening: Sigmoidoscopy 2002 Influenza Vaccine (#1) 2024 Hepatitis B Vaccine Aged Out No longe r eligible based on patient's age to complete this topic Insurance Medicare Medicaid [place] Care Teams Stock Speculator Relationship Specialty Start Date End Date Stu Salmeron MD PCP - General Internal Medicine 02/27/20
--- OUTSIDE RECORDS SUMMARY | 2024-10-19 12:13 | XMS_ITS | Encounter Summary ---
Author Organization [employer] Address [address] [place] [address] [address] [place] [address] Care Team Providers Care Therapy Manager Name Role Phone Stu Salmeron MD Primary Care Provider [phone] Encounter Details Date Type Department Care Team (Late st Contact Info) Description 06/23/2023 Orders Only [facility] MED & PEDS [address] [place], [place] [phone] Stu Salmeron MD [address] [place] [address] Benign prostatic hyperplasia, unspecified whether lower urinary tract symptoms present (Primary Dx); Generalized osteoarthritis; Left wrist pain; Elevated BP without diagnosis of hypertension Social History Tobacco Use Types Packs/Day Years [...] 1:00 PM EDT Clinical Support [facility] MED & PEDS [address] [place] [address] 02/04/2025 10:00 AM EST Clinical Support [facility] MED & PEDS [address] [place], [place] [phone] Scheduled Orders Name Type Priority Associated Diagnoses Orde r Schedule Basic Metabolic Panel, Fasting Lab Routine Benign prostatic hyperplasia, unspecified whether lower urinary tract symptoms present Generalized osteoarthritis Left wrist pain Elevated BP without diagnosis of hypertension Expected: 06/23/2023 (Approximate), Expires: 06/22/2024 CBC auto differential Lab Routine Benign prostatic hyperplasia, unspecified whether lower urinary tract symptoms present Generalized osteoarthritis Left wrist pain Elevated BP without diagnosis of hypertension Expected: 06/23/2023 (Approximate), Expires: 06/22/2024 documented as of this encounter Procedures Procedure Name Priority Date/Time Associated Diagnosis Comments SLIDE REVIEW Routine 06/30/2023 12:20 PM EDT Benign prostatic hyperplasia, unspecified whether lower urinary tract symptoms present documented in this encounter Results * Slide Review (06/30/2023 12:20 PM EDT) Slide Review VERIFIED [facility] 06/30/2023 12:2 0 PM EDT 06/30/2023 2:20 PM EDT Stu Salmeron MD LAB BLOOD ORDERABLES Final Result [facility] [address] [place] [phone] documented in this encounter Visit Diagnoses Diagnosis Benign prostatic hyperplasia, unspecified whether lower urinary tract symptoms present- Primary Generalized osteoarthritis Generalized osteoarthrosis, involving multiple sites Left wrist pain Pain in joint, forearm Elevated BP without diagnosis of hypertension documented in this encounter Care Teams Therapy Manager Relationship Specialty Start Date End Date Stu Salmeron MD [address] [place] [address] PCP - General Internal Medicine 08/21/19 documented as of this encounter
--- OUTSIDE RECORDS SUMMARY | 2024-10-19 12:13 | XMS_ITS | Encounter Summary ---
Author Organization [employer] Address [address] [place] [address] Care Team Providers Care Juice Weigher Name Role Phone Stu Salmeron MD Primary Care Provider [phone] Reason for Visit * Reason Onset Date Comments Results 08/01/2023 Encounter Details Date Type Department Care Team ([facility] Contact Info) Description 08/01/2023 Telephone [facility] CHC MED & PEDS [address] [place], [place] [phone] Stu Salmeron MD [address] [place] [address] Results Social History Tobacco Use Types Packs/Day Years [...] AM EDT documented as of this encounter Miscellaneous Notes * Telephone Encounter - Wing Sergey RN - 08/02/2023 9:38 AM EDT Tc to pt to relay lab results and next steps. Pt is assuming you will be talking with Dr. Maciel, the [facility] oncology provider he is seeing. Pt reports he is taking tomaxafin for his treatment along with pt starting iron, Mg, and zinc supplements since pt's last PCP visit on 06/30. Pt is also having surgery on 08/03 to remove two hernias due to the referral made on 06/30. Pt will be waiting for call about what PCP and [facility] provider discuss as the next step in the course of action. Caller statedto pt that PCP director print would reach back to pt when there was a plan. Pt verbalized understanding and agreement with plan. * Telephone Encounter - Darius Frank RN - 08/01/2023 2:41 PM EDT [facility] contacted and results were faxed to our end. RN scanned lab results to chart. Please reviewand advise nurse's. Thanks. * Telephone Encounter - Kaylee Lim - 08/01/2023 10:20 AM EDT TC from pt requesting to get lab results that were done couple weeks ago. States went to [facility] kb. Please call pt to clarify. documented in this encounter Plan of Treatment Upcoming Encounters Date Type Department Care Team (Late st Contact Info) Description 10/25/2024 1:00 PM EDT Clinical Support [facility] MED & PEDS [address] [place] [address] 02/04/2025 10:00 AM EST Clinical Support [facility] MED & PEDS [address] [place] [address] documented as of this encounter Visit Diagnoses Not on filedocumented in this encounter Additional Health Concerns Assessment Noted Time PHQ-9 Depression Total Score: 0 06/30/19 11:39 AM EDT documented as of this encounter Care Teams Juice Weigher Relationship Specialty Start Date End Date Stu Salmeron MD [address] [place] [address] PCP - General Internal Medicine 08/21/19 documented as of this encounter
--- OUTSIDE RECORDS SUMMARY | 2024-10-19 12:13 | XMS_ITS | Clinical Summary ---
Author Organization [employer] Address [address] [facility] 7[address] [place] [address] Care Team Providers Care Truck Striker Name Role Phone Stu Salmeron MD Primary Care Provider [phone] Allergies Active Allergy Reactions Criticality Noted Date Comments Bee Venom Anaphylaxis High 10/12/2019 Medications tamoxifen (Nolvadex) 20 MG chemo tablet Take 1 tablet by mouth Once per day. 05/04/19 25 Active biotin 5000 MCG tablet Take 2 tablets by mouth Once per day. Purchases OTC Active Magnesium Glycinate 100 MG capsule Take 4 capsules by mouth Once per day. Purchases OTC Active Zinc 30 MG capsule Take 1 capsule by mouth Once per day. Purchases OTC Active Glecaprevir-Pi brentasvir (Mavyret) 100-40 MG tablet Take 3 tablets by mouth Once per day. 84 tablet 1 07/24/19 25 Active EPINEPHrine (EpiPen 2-Jere) 0.3 MG/0.3ML injection syringeIndicat ions:Bee sting allergy Inject 0.3 mL (0.3 mg) as directed 1 (one) time for 1 dose. 0.3 mL 10/04/19 25 Active EPINEPHrine (EpiPen 2-Jere) 0.3 MG/0.3ML injection syringeIndicat ions:Bee sting allergy Inject 0.3 mL (0.3 mg) as directed 1 (one) time for 1 dose. 0.3 mL 07/17/19 23 025 Discontinued(Re order (will not trigger notification to Pharmacy)) Ferrous Sulfate (IRON HIGH-POTENCY PO) Take 1 capsule by mouth Once per day. (500mg OTC Dessicated Beef Capsule) 025 Discontinued(Th erapy completed) Active Problems Problem Noted Date Diagnosed Date Chronic hepatitis C without hepatic coma 025 BPH (benign prostatic hyperplasia) 07/16/2022 Resolved Problems Problem Noted Date Diagnosed Date Resolved Date Generalized osteoarthritis 10/10/2019 0 07/03/2024 Encounters Date Type Department Care Team Description 10/18/2024 Travel 10/03/2024 10:30 AM EDT Office Visit [facility] [address] [place] [address] Stu Salmeron MD Left inguinal hernia (Primary Dx); Primary hypertension; Microcytic anemia; Dietary counseling; Exercise counseling; Overweight; Bee sting allergy; Chronic hepatitis C without hepatic coma (CMS/HCC); Chronic cough 10/03/2024 Travel 10/02/2024 Telephone [facility] [address] [place] [address] Stu Salmeron MD 09/26/2024 Travel 08/24/2024 10:00 AM EDT Clinical Support [facility] [address] [place] [address] Stephania Hall RN Encounter for immunization 08/24/2024 Travel 08/17/2024 Travel 08/01/2024 Telephone [facility] [address] [place] [address] Indy Epstein, LEROY hep c tx 07/25/2024 2:15 PM EDT Immunization [facility] [address] [place] [address] Encounter for immunization 07/25/2024 Travel 07/24/2024 Travel 07/23/2024 1:00 PM EDT Telemedicine [facility] [address] [place] [address] Ruth Barger MD Hepatitis C virus infection without hepatic coma, unspecified chronicity (Primary Dx) 07/23/2024 Travel from Last 3 Months Immunizations Immunization Administration Dates Next Due Hep A, Adult 07/25/2024 Hep B, adult 08/24/2024,07/25/2024 Influenza High-dose Quadriva lent Preservative Free 10/26/2022,10/16/2021,01/06/2021,2019 Influenza, High Dose Seasona l, Preservative Free 10/23/2023 Pfizer Covid-19 Vaccine 12+ 10/16/2021 Pfizer Covid-19 Vaccine 12+ Bivalent 10/16/2021 Pneumococcal Conjugate PCV 20 11/11/2022 Tdap 07/03/2024 Zoster, Recombinant 06/05/2022,01/21/2022,2021 Social History Tobacco Use Types Packs/Day Years Used Date Smoking Tobacco: Former Cigarettes 1.5 54 1 966 - 2020 Smokeless Tobacco: Never Tobacco Cessation:Counseling Given: Not Answered Depression Answer Date Recorded Patient Health Questionnaire-9 Score 0 07/03/2024 Patient Health Questionnaire-9 Score 0 07/03/2024 Last PHQ-9: Questionnaire Data Not on file 0 07/03/2024 Housing Stability Answer Date Recorded What is your housing situation today? I have haydeekyler albarran 07/03/[address] you [...] Orientation Straight 12/07/2021 10 :37 AM EDT Last Filed Vital Signs Vital Sign Reading Time Taken Comments Blood Pressure 166/94 10/03/2024 10:25 AM EDT Pulse 82 10/03/2024 10:25 AM EDT Temperature 36.7 C (98 F) 07/03/2024 10:11 AM EDT Respiratory Rate 19 10/03/2024 10:25 AM EDT Oxygen Saturation 99% 10/03/2024 10:25 AM EDT Inhaled Oxygen Concentration - - Weight 83.9 kg (185 lb) 10/03/2024 10:25 AM EDT Height 167.6 cm (5' 6 ) 10/03/2024 10:25 AM EDT Body Mass Index 29.86 10/03/2024 10:25 AM EDT Plan of Treatment Upcoming Encounters Date Type Department Care Team ([facility] st Contact Info) Description 10/25/2024 1:00 PM EDT Clinical Support [facility] [address] [place] [address] 02/04/2025 10:00 AM EST Clinical Support [facility] [address] [place] [address] Health Maintenance Due Date Last Done Comments CT Colonography 1953 FIT DNA/Cologuard 1955 FIT 1953 FOBT 1955 Sigmoidoscopy 1955 Lung Cancer Screening 12/31/2003 RSV Patients and Patients Aged 60 years or older (1 - Risk 60-74 years 1-dose series) 2013 COVID-19 Vaccine ( season) 2024 10/23/2023, 10/26/2022, 06/05/2022, Additional history exists Influenza Vaccine (#1) 2024 , 10/26/2022, 10/16/2021, Additional history exists Hepatitis A Vaccines (2 of 2 - Risk 2-dose series) 01/24/2025 07/25/2024 Hepatitis B Vaccines (3 of 3 - Risk 3-dose series) 01/24/2025 08/24/2024, 07/25/2024 Alcohol/Substance Use Screening 07/03/2025 07/03/2024 Depression Screening 07/03/2025 07/03/2024, 07/04/19 SDOH Screening 07/03/2025 07/03/2024 Tobacco Screening 10/03/2025 10/03/2024 Lipid Panel 07/03/2029 07/03/2024 Colonoscopy 12/09/2030 12/09/2020, 12/09/2020 Colorectal Cancer Screening 12/09/2030 DTaP/Tdap/Td Vaccines (2 - Td or Tdap) 07/03/2034 07/03/2024 Zoster Vaccines Completed 06/05/2022, 01/07, 10/30/2021 Pneumococcal Vaccine: 50+ Years Completed 11/11/2022 HIB Vaccines Aged Out No longer eligi ble based on patient's age to complete this topic HPV Vaccines Aged Out No longer eligi ble based on patient's age to complete this topic IPV Vaccines Aged Out No longer eligi ble based on patient's age to complete this topic Meningococcal B Vaccine Aged Out No l onger eligible based on patient's age to complete this topic Meningococcal Vaccine Aged Out No golden bruce eligible based on patient's age to complete this topic RSV under 20 months Aged Out No longe r eligible based on patient's age to complete this topic Rotavirus Vaccines Aged Out No longer eligible based on patient's age to complete this topic Procedures Procedure Name Priority Date/Time Associated Diagnosis Comments LIPID PANEL, STANDARD Routine 07/03/2024 12:00 AM EDT Microcytic anemia Primary hypertension COLONOSCOPY Routine 12/09/2020 from Last 3 Months or Most Recently Relevant to Health Maintenance Results * Lipid Panel, Standard (07/03/2024 12:00 AM EDT) Triglycerides 55 <150 mg/dL [facility] Comment:Desirable Triglyceri de: less than 150 mg/dLBorderline High Triglyceride 150-199 mg/dLHigh Triglyceride: 200-499 mg/dLVery High Triglyceride: greater than or equal to 5OO mg/dL Cholesterol 140 <200 mg/dL [facility] Comment:Desirable Cholestero l: less than 200 mg/dLBorderline High Cholesterol: 200-239 mg/dLHigh Cholesterol: greater than 239 mg/dL LDL Cholesterol Calculated 78 <100 mg/dL [facility] Comment:Desirable LDL: less than 100 mg/dLNear Optimal/Above Optimal LDL: 110- 129 mg/dLBorderline High LDL: 130-159 mg/dLHigh LDL: 160-189 mg/dLVery High LDL: greater than or equal to 190 mg/dL HDL Cholesterol 51 >40 mg/dL [facility] Comment:Desirable HDL: great er than 40 mg/dL Note: This HDL assay may give artificially low results in patients with liver disease. Blood Venous blood specimen / Unknown 07/03/2024 07/03/2024 us Stu Salmeron MD LAB BLOOD ORDERABLES Final Result Performing Organization Address City/State/[facility] Co de Phone Number [facility] [address] [place] [address] [phone] * (ABNORMAL) Colonoscopy (12/09/2020) Anatomical Region Laterality Modality Endoscopy Narrative 12/09/2020 Colonoscopy done on 12-09-20: Tubular adenomas of the ascending colon and sigmoid colon ( biopsy confirmed) us Historical Provider ENDOSCOPY PROCEDURE ORDER KAYLEE Final Result from Last 3 Months or Most Recently Relevant to Health Maintenance Insurance [place] [address] [place] [id number] [facility] STANDARD Care Teams Truck Striker Relationship Specialty Start Date End Date Stu Salmeron MD [address] [place] [phone] PCP - General Internal Medicine 08/21/19
--- OUTSIDE RECORDS SUMMARY | 2024-10-19 12:13 | XMS_ITS | Encounter Summary ---
Author Organization [employer] [facility] Address [address] [place] [address] 7 [place] [address] Care Team Providers Care Soda Flaker Name Role Phone Stu Salmeron MD Primary Care Provider [phone] Encounter Details Date Type Department Care Team (Late st Contact Info) Description 07/07/2023 Orders Only [facility] [address] [place] [address] Provider, MD Loli Social History Tobacco Use Types Packs/Day Years [...] Description 10/25/2024 1:00 PM EDT Clinical Support [facility] [address] [place] [address] 02/04/2025 10:00 AM EST Clinical Support [facility] [address] [place] [address] documented as of this encounter Procedures Procedure [...] documented as of this encounter Care Teams Soda Flaker Relationship Specialty Start Date End Date Stu Salmeron MD [address] [place] [address] PCP - General Internal Medicine 08/21/19 documented as of this encounter
--- OUTSIDE RECORDS SUMMARY | 2024-10-19 12:13 | XMS_ITS | Encounter Summary ---
Author Organization [employer] Address [address] [place] [address] Care Team Providers Care Manager Collection Name Role Phone Stu Salmeron MD Primary Care Provider [phone] Reason for Visit * Reason Comments Med Refill Encounter Details Date Type Department Care Team (Late st Contact Info) Description 02/18/2022 Refill [facility] [address] [place], [place] [phone] Stu Salmeron MD [address] [place] [address] Tinea cruris Social History Tobacco Use Types Packs/Day Years Used Date Smoking Tobacco: Never Assessed Sex and Gender Information Value Date Recorded [...] 1:00 PM EDT Clinical Support [facility] [address] [place], [place] [phone] 02/04/2025 10:00 AM EST Clinical Support [facility] [address] [place] [address] documented as of this encounter Visit Diagnoses Diagnosis Tinea cruris Dermatophytosis of groin and perianal area documented in this encounter Care Teams Manager Collection Relationship Specialty Start Date End Date Stu Salmeron MD [address] [place] [address] PCP - General Internal Medicine 08/21/19 documented as of this encounter
--- OUTSIDE RECORDS SUMMARY | 2024-10-19 12:13 | XMS_ITS | Encounter Summary ---
Author Organization [employer] Address [address] [place] [address] Care Team Providers Care Acid Remover Name Role Phone Stu Salmeron MD Primary Care Provider [phone] Reason for Referral * Consultation (Routine) - Closed Specialty Diagnoses / Procedures Referred By Contac t Referred To Contact Family Medicine Diagnoses Chronic hepatitis C without hepatic coma (CMS/HCC) Stu Salmeron MD [address] [place] [address] Phone: tel: fax: Referral ID Status Reason Start Date Expiration Date V isits Requested Visits Authorized [id number] Closed Specialty Services Required 07/05/2024 07/05/2025 1 1 Encounter Details Date Type Department Care Team ([facility] st Contact Info) Description 07/05/2024 Orders Only [facility]S [address] [place] [address] Stu Salmeron MD [address] [place] [address] Chronic hepatitis C without hepatic coma (CMS/HCC) (Primary Dx) Social History Tobacco Use Types Packs/Day Years [...] Upcoming Encounters Date Type Department Care Team ([facility] st Contact Info) Description 10/25/2024 1:00 PM EDT Clinical Support [facility] [address] [place] [address] 02/04/2025 10:00 AM EST Clinical Support [facility] [address] [place] [address] Scheduled Referrals Name Type Priority Associated Diagnoses Order Schedule Referral to [facility] Infectious Disease (HIV & Hep C) Outpatient Referral Routine Chronic hepatitis C without hepatic coma (CMS/HCC) Expected: 07/05/2024 (Approximate), Expires: 07/05/2025 documented as of this encounter Visit Diagnoses Diagnosis Chronic hepatitis C without hepatic coma (CMS/HCC)- Primary documented in this encounter Additional Health Concerns Assessment Noted Time PHQ-9 Depression Total Score: 0 07/04/19 25 10:55 AM EDT documented as of this encounter Care Teams Acid Remover Relationship Specialty Start Date End Date Stu Salmeron MD [address] [place] [address] PCP - General Internal Medicine 08/21/19 documented as of this encounter
== END 2024-10-19 11:00 | disposition home or self-care (01) ==
LOC: HO.HPS 10:35
PROVIDERS: PCP Internal Medicine; Referring Provider Internal Medicine; Visit Provider Physician Assistant Medical
DX: Z87.891 Personal history of nicotine dependence (principal)
CPT/HCPCS: G0296

== ENCOUNTER 2024-10-19 10:53 | Outpatient (REF) | payer MEDICARE, MEDICAID, SELFPAY ==
--- NOTE | ~2024-10-19 | CT_ITS ---
CLINICAL HISTORY: Z87.891 - Personal history of nicotine dependence CT lung cancer screening (LDCT) Comparison: None provided Technique: Axial CT images of the chest using low-dose technique. Referring provider counseled the patient on shared decision-making for LDCT screening. Additional counseling was provided on smoking cessation. Effective radiation dose total: DLP 49.4 mGycm, CTDIvol 1.4 mGy. Findings: Lung: No evidence of pneumonia or edema. Mild apical predominant emphysema. Mild bibasilar scarring. No suspicious pulmonary nodules. Mildly prominent pre cardiac lymph node measuring 13 mm short axis. Coronary artery calcifications: Mild Limited upper abdomen: Pancreatic calcifications. Other: None IMPRESSION: 1. Anterior mediastinal adenopathy. LungRADS 4A - Suspicious:PET-CT examination is recommended. 2. Chronic pancreatitis. ##L4A## This document has been electronically signed by: Pilar Daniel MD on 10/19/2024 17:13:45
== END 2024-10-19 10:54 | disposition home or self-care (01) ==
LOC: HO.CT 10:53
PROVIDERS: PCP Internal Medicine; Visit Provider Physician Assistant Medical
DX: Z12.2 Encounter for screening for malignant neoplasm of respiratory organs (principal); Z87.891 Personal history of nicotine dependence
CPT/HCPCS: 71271; G0296

== ENCOUNTER → 2024-10-19 10:54 | Outpatient (BNV) | payer MEDICARE, MEDICAID, SELFPAY | PROVIDERS: PCP Internal Medicine; Visit Provider Radiology Diagnostic Radiology | DX: Z87.891 Personal history of nicotine dependence (principal) | CPT/HCPCS: 71271 ==

== ENCOUNTER 2024-12-13 09:51 | Outpatient (REF) | payer MEDICARE, MEDICAID, SELFPAY ==
--- OUTSIDE RECORDS SUMMARY | 2024-12-13 11:12 | XMS_ITS | Encounter Summary ---
Author Organization [employer] Address [address] [place] [address] Care Team Providers Care Chip Crusher Operator Name Role Phone Stu Salmeron MD Primary Care Provider [phone]- [phone] Reason for Visit * Reason Onset Date Comments Results 08/01/2023 Encounter Details Date Type Department Care Team ([facility] Contact Info) Description 08/01/2023 Telephone [facility]ED[facility] [address] [place], [place] [phone] Stu Salmeron MD [address] [place] [address] Results Social History Tobacco Use Types Packs/Day [...] will be talking with Dr. Maciel, the [facility] oncology provider he is seeing. Pt reports he is taking tomaxafin for his treatment along with pt starting iron, Mg, and zinc supplements since pt's last PCP visit on 06/30. Pt is also having surgery on 08/03 to remove two hernias due to the referral made on 06/30. Pt will be waiting for call about what PCP and [facility] provider discuss as the next step in the course of action. Caller statedto pt that PCP director of infection control would reach back to pt when there [...] couple weeks ago. [facility]. Please call pt to clarify. documented in this encounter Plan of Treatment Upcoming Encounters Date Type Department Care Team (Late st Contact Info) Description 02/04/2025 10:00 AM EST Clinical Support [facility] [address] [place] [address] documented as of this encounter Visit Diagnoses Not on filedocumented in this encounter Additional Health Concerns Assessment Noted Time PHQ-9 Depression Total Score: 0 06/30/19 24 11:39 AM EDT documented as of this encounter Care Teams Chip Crusher Operator Relationship Specialty Start Date End Date Stu Salmeron MD [address] [place] [address] PCP - General Internal Medicine 08/21/19 documented as of this encounter
--- OUTSIDE RECORDS SUMMARY | 2024-12-13 11:12 | XMS_ITS | Encounter Summary ---
Author Organization [employer] [facility] Address [address] [place] [address] 7t [place] [address] Care Team Providers Care Bedspring Assembler Name Role Phone Stu Salmeron MD Primary Care Provider [phone] [phone] Encounter Details Date Type Department Care Team (Late st Contact Info) Description 07/07/2023 Orders Only [facility] [address] [place] [address] Provider, MD Loli Social History Tobacco Use [...] Description 02/04/2025 10:00 AM EST Clinical Support [facility] [address] [place] [address] documented as of this encounter Procedures Procedure [...] documented as of this encounter Care Teams Bedspring Assembler Relationship Specialty Start Date End Date Stu Salmeron MD [address] [place] [address] PCP - General Internal Medicine 08/21/19 documented as of this encounter
--- OUTSIDE RECORDS SUMMARY | 2024-12-13 11:12 | XMS_ITS | Encounter Summary ---
Author Organization [employer] [facility] Address [address] [place] [address] Care Team Providers Care Mix Crusher Operator Name Role Phone Stu Salmeron MD Primary Care Provider [phone]- [phone] Reason for Visit * Reason Comments Med Refill Encounter Details Date Type Department Care Team (Late st Contact Info) Description 02/18/2022 Refill [facility] [address] [place], [place] [phone] Stu Salmeron MD [address] [place] [address] Tinea cruris Social History Tobacco Use Types [...] Description 02/04/2025 10:00 AM EST Clinical Support [facility] [address] [place], [place] [phone] documented as of this encounter Visit Diagnoses Diagnosis Tinea cruris Dermatophytosis of groin and perianal area documented in this encounter Care Teams Mix Crusher Operator Relationship Specialty Start Date End Date Stu Salmeron MD [address] [place] [address] PCP - General Internal Medicine 08/21/19 documented as of this encounter
--- OUTSIDE RECORDS SUMMARY | 2024-12-13 11:12 | XMS_ITS | Encounter Summary ---
Author Organization [employer] Address [address] [place] [address] 7 [place] [address] Care Team Providers Care Research Group Director Name Role Phone Stu Salmeron MD Primary Care Provider [phone] Encounter Details Date Type Department Care Team (Late st Contact Info) Description 06/23/2023 Orders Only [facility] [address] [place], [place] [phone] Stu Salmeron MD [address] [place] [address] Benign prostatic hyperplasia, unspecified whether lower urinary [...] Description 02/04/2025 10:00 AM EST Clinical Support [facility] [address] [place] [address] Scheduled Orders Name Type Priority Associated Diagnoses [...] (06/30/2023 12:20 PM EDT) Slide Review VERIFIED [facility] 06/30/2023 12:2 0 PM EDT 06/30/2023 2:20 PM EDT us Stu Salmeron MD LAB BLOOD ORDERABLES Final Result [facility] [address] [place] [address] [phone] documented in this encounter Visit Diagnoses Diagnosis Benign prostatic hyperplasia, unspecified whether lower urinary tract symptoms present- Primary Generalized osteoarthritis Generalized osteoarthrosis, involving multiple sites Left wrist pain Pain in joint, forearm Elevated BP without diagnosis of hypertension documented in this encounter Care Teams Research Group Director Relationship Specialty Start Date End Date Stu Salmeron MD [address] [place] [address] PCP - General Internal Medicine 08/21/19 documented as of this encounter
--- OUTSIDE RECORDS SUMMARY | 2024-12-13 11:12 | XMS_ITS | Encounter Summary ---
Author Organization [employer] Address [address] [facility] 7t [place] [address] Care Team Providers Care Head Of Biology Name Role Phone Stu Salmeron MD Primary Care Provider [phone] Encounter Details Date Type Department Care Team (Late st Contact Info) Description 12/12/2024 Orders Only [facility] [address] [place] [address] Indy Epstein, RN [address] [place] [address] Chronic hepatitis C without hepatic coma (HCC) (Primary Dx) Social History Tobacco Use Types [...] Upcoming Encounters Date Type Department Care Team ([facility] st Contact Info) Description 02/04/2025 10:00 AM EST Clinical Support [facility] [address] [place] [address] Scheduled Orders Name Type Priority Associated Diagnoses Orde r Schedule Hepatitis C Antibody with Reflex to HCV, RNA, Quantitative, Real-Time PCR Lab Routine Chronic hepatitis C without hepatic coma (HCC) Expected: 12/12/2024 (Approximate), Expires: 12/12/2025 documented as of this encounter Visit Diagnoses Diagnosis Chronic hepatitis C without hepatic coma (HCC)- Primary documented in this encounter Additional Health Concerns Assessment Noted Time PHQ-9 Depression Total Score: 0 07/04/19 25 10:55 AM EDT documented as of this encounter Care Teams Head Of Biology Relationship Specialty Start Date End Date Stu Salmeron MD [address] [place] [address] PCP - General Internal Medicine 08/21/19 documented as of this encounter
--- OUTSIDE RECORDS SUMMARY | 2024-12-13 11:12 | XMS_ITS | Encounter Summary ---
Author Organization [employer] Address [address] [facility] 7t [place] [address] Care Team Providers Care Welder Gas Automatic Name Role Phone Stu Salmeron MD Primary Care Provider [phone] Encounter Details Date Type Department Care Team (Late st Contact Info) Description 10/24/2024 Telephone [facility] [address] [place] [address] Indy Epstein, RN [address] [place] [address] Social History Tobacco Use Types Packs/Day Years Used Date Smoking Tobacco: Former Cigarettes 1.5 54 1 6 2019 Smokeless Tobacco: Never Depression Answer Date Recorded Patient Health Questionnaire-9 Score 0 07/03/2024 Patient Health Questionnaire-9 Score 0 07/03/2024 Last PHQ-9: Questionnaire Data Not on file 0 07/03/2024 Housing Stability Answer Date Recorded What is your housing situation today? I have haydee deion 07/03/[address] you li [...] encounter Miscellaneous Notes * Telephone Encounter - Indy Epstein RN - 12/12/2024 9:29 AM EST RN spoke to pt and reminded of SVR, pt states he arranged a ride to come to lab tomorrow. RN will f/u with pt with results when recieved * Telephone Encounter - Indy Epstein RN - 10/24/2024 11:47 AM EDT SVR date: 12/12/24 Reminder set for SINGH documented in this encounter Plan of Treatment Upcoming Encounters Date Type Department Care Team (Late st Contact Info) Description 02/04/2025 10:00 AM EST Clinical Support [facility] [address] [place] [address] documented as of this encounter Visit Diagnoses Not on filedocumented in this encounter Additional Health Concerns Assessment Noted Time PHQ-9 Depression Total Score: 0 07/04/19 10:55 AM EDT documented as of this encounter Care Teams Welder Gas Automatic Relationship Specialty Start Date End Date Stu Salmeron MD [address] [place] [address] PCP - General Internal Medicine 08/21/19 documented as of this encounter
--- OUTSIDE RECORDS SUMMARY | 2024-12-13 11:12 | XMS_ITS | Clinical Summary ---
Author Organization [facility], Address [address] [place] [address] Phone Care Team Providers Care Proposal Coordinator Name Role Phone Stu Salmeron MD Primary Care Provider [phone] Allergies Active Allergy Reactions Criticality Noted Date [...] topic Insurance Medicare Medicaid [place] Care Teams Proposal Coordinator Relationship Specialty Start Date End Date Stu Salmeron MD PCP - General Internal Medicine 02/27/20
--- OUTSIDE RECORDS SUMMARY | 2024-12-13 11:12 | XMS_ITS | Encounter Summary ---
Author Organization [employer] Address [address] [place] [address] Care Team Providers Care Seed Analysis Laboratory Assistant Name Role Phone Stu Salmeron MD Primary Care Provider [phone] [phone] Reason for Referral * Consultation (Routine) - Closed Specialty Diagnoses / Procedures Referred By Contted t Referred To Contact Family Medicine Diagnoses Chronic hepatitis C without hepatic coma (HCC) Stu Salmeron MD [address] [place] [address] Phone: tel: fax: Referral ID Status Reason Start Date Expiration Date V isits Requested Visits Authorized [id number] Closed Specialty Services Required 07/05/2024 07/05/2025 1 1 Encounter Details Date Type Department Care Team ([facility] st Contact Info) Description 07/05/2024 Orders Only [facility] MED & PEDS [address] [place] [address] Stu Salmeron MD [address] [place], [place] [phone] Chronic hepatitis C without hepatic coma (CMS/HCC) [...] Description 02/04/2025 10:00 AM EST Clinical Support [facility] MED & PEDS [address] [place] [address] Scheduled Referrals Name Type Priority Associated Diagnoses Order Schedule Referral to [facility] Infectious Disease (HIV & Hep C) [...] documented as of this encounter Care Teams Seed Analysis Laboratory Assistant Relationship Specialty Start Date End Date Stu Salmeron MD [address] [place] [address] PCP - General Internal Medicine 08/21/19 documented as of this encounter
--- OUTSIDE RECORDS SUMMARY | 2024-12-13 11:12 | XMS_ITS | Clinical Summary ---
Author Organization [employer] Address [address] [facility] 7[address] [place] [address] Care Team Providers Care Rn Pacu Name Role Phone Stu Salmeron MD Primary Care Provider [phone] [phone] Allergies Active Allergy Reactions Criticality Noted Date Comments Bee Venom Anaphylaxis High 10/12/2019 Medications tamoxifen (Nolvadex) 20 MG chemo tablet Take 1 tablet by mouth Once per day. Active biotin 5000 MCG tablet Take 2 tablets by mouth Once per day. Purchases OTC Active Magnesium Glycinate 100 MG capsule Take 4 capsules by mouth Once per day. Purchases OTC Active Zinc 30 MG capsule Take 1 capsule by mouth Once per day. Purchases OTC Active EPINEPHrine (EpiPen 2-Jere) 0.3 MG/0.3ML injection syringeIndicati ons:Bee sting allergy Inject 0.3 mL (0.3 mg) as directed 1 (one) time for 1 dose. 0.3 mL Active Active Problems Problem Noted Date Diagnosed Date Chronic pancreatitis (CMS/HCC) 10/31/2024 History of right breast cancer 10/31/2024 Chronic hepatitis C without hepatic coma 025 BPH (benign prostatic hyperplasia) 07/16/2022 Resolved Problems Problem Noted Date Diagnosed Date Resolved Date Generalized osteoarthritis 10/10/2019 0 07/03/2024 Encounters Date Type Department Care Team Description 12/12/2024 Orders Only [facility] MEDICINE [address] [place] [address] Indy Epstein, merchandising assistant hepatitis C without hepatic coma (HCC) (Primary Dx) 11/29/[address] [facility] MEDICINE [address] [place] [address] Uriah Givens, RN Hep C Management 10/31/2024 11:15 AM EDT Telemedicine [facility] MED & PEDS [address] [place] [address] Stu Salmeron MD Other chronic pancreatitis (CMS/HCC) (Primary Dx); History of right breast cancer 10/31/2024 Travel 10/28/2024 Travel 10/25/2024 1:00 PM EDT Clinical Support [facility] MED & PEDS [address] [place] [address] Stephania Hall, LEROY Encounter for immunization 10/25/2024 Travel 10/24/[address] [facility] MEDICINE [address] [place] [address] Indy Epstein RN 10/22/2024 Telephone [facility] MED & PEDS [address] [place] [address] Stu Salmeron MD 10/19/2024 Orders Only [facility] External Provider, [facility] 10/18/2024 Travel 10/03/2024 10:30 AM EDT Office Visit [facility] MED & PEDS [address] [place] [address] Stu Salmeron MD Left inguinal hernia (Primary Dx); Primary hypertension; Microcytic anemia; Dietary counseling; Exercise counseling; Overweight; Bee sting allergy; Chronic hepatitis C without hepatic coma (CMS/HCC); Chronic cough 10/03/2024 Travel 10/02/2024 Telephone [facility] MED & PEDS [address] [place] [address] Stu Salmeron MD 09/26/2024 Travel from Last 3 Months Immunizations Immunization Administration Dates Next Due Hep A, Adult 07/25/2024 Hep B, adult 10/25/2024,08/24/2024,07/25/2024 Influenza High-dose Quadriva lent Preservative Free 10/26/2022,10/16/2021,01/06/2021,2019 [...] Description 02/04/2025 10:00 AM EST Clinical Support [facility] MED & PEDS [address] [place] [address] Health Maintenance Due Date Last Done Comments CT Colonography 1955 FIT DNA/Cologuard 1955 FIT 1955 FOBT 1955 Sigmoidoscopy 1955 Hepatitis A Vaccines (2 of 2 - Risk 2-dose series) 01/24/2025 07/25/2024 Hepatitis B Vaccines (3 of 3 - Risk 3-dose series) 01/24/2025 10/25/2024, 08/24/2024, 07/25/2024 Alcohol/Substance Use Screening 07/03/2025 07/03/2024 Depression Screening 07/03/2025 07/03/2024, 07/04/19 25 SDOH Screening 07/03/2025 07/03/2024 Lung Cancer Screening 10/19/2025 10/19/2024 Tobacco Screening 10/31/2025 10/31/2024 Lipid Panel 07/03/2029 07/03/2024 Colonoscopy 12/09/2030 12/09/2020, 12/09/2020 Colorectal Cancer Screening 12/09/2030 DTaP/Tdap/Td Vaccines (2 - Td or Tdap) 07/03/2034 07/03/2024 Zoster Vaccines Completed 06/05/2022, 01/07, 10/30/2021 Pneumococcal Vaccine: 50+ Years Completed 11/11/2022 Influenza Vaccine Completed 10/03/2024, , 10/26/2022, Additional history exists COVID-19 Vaccine Completed 10/27/2024, , 10/26/2022, Additional history exists RSV Patients and Patients Aged 60 years or older Completed 10/29/2024 HIB Vaccines Aged Out No longer eligi [...] Procedure Name Priority Date/Time Associated Diagnosis Comments LDCT LUNG SCREENING Routine 10/19/2024 5 :13 PM EDT LIPID PANEL, STANDARD Routine 07/03/2024 12:00 AM EDT Microcytic anemia Primary hypertension COLONOSCOPY Routine 12/09/2020 from Last 3 Months or Most Recently Relevant to Health Maintenance Results * CT Lung Screening Low dose (10/19/2024 5:13 PM EDT) Anatomical Region Laterality Modality Lung Computed Tomogra phy 10/19/2024 5:13 PM EDT Narrative 10/19/2024 5:14 PM EDT [address] [address] [address] Scan Report Signed Patient: Mark River MR#: [id number] : 1955 Acct:[id number] Age/Sex: 68 / M ADM Date: 10/19/24 Loc: HO.CT Attending Dr: Katja Loya PA-C Ordering Physician: Katja Loya PA-C Date of Service: 10/19/24 Procedure(s): CT lung screening Accession Number(s): [id number] cc: Stu Salmeron MD; Katja Loya PA-C Report Number: [id number]: Total DLP = 61.00 mGy-cm Reason for Exam: Z87.891 - Personal history of nicotine dependence CLINICAL HISTORY: Z87.891 - Personal history of nicotine dependence CT lung cancer screening (LDCT) Comparison: None provided Technique: Axial CT images of the chest using low-dose technique. Referring provider counseled the patient on shared decision-making for LDCT screening. Additional counseling was provided on smoking cessation. Effective radiation dose total: DLP 49.4 mGycm, CTDIvol 1.4 mGy. Findings: Lung: No evidence of pneumonia or edema. Mild apical predominant emphysema. Mild bibasilar scarring. No suspicious pulmonary nodules. Mildly prominent pre cardiac lymph node measuring 13 mm short axis. Coronary artery calcifications: Mild Limited upper abdomen: Pancreatic calcifications. Other: None IMPRESSION: 1. Anterior mediastinal adenopathy. LungRADS 4A - Suspicious:PET-CT examination is recommended. 2. Chronic pancreatitis. ##L4A## This document has been electronically signed by: Pilar Daniel MD on 10/19/2024 17:13:45 Dictated By: Pilar Daniel MD Signed By: <Electronically signed by Pilar Daniel MD in OV> 10/19/241713 DD/ 12 TD/TT: 10/19/241712 Stone Mason: Procedure Note Donotuseinterpreter, Image - 10/19/[address] [place] [address] [address] Scan Report Signed Patient: Mark River [facility]#: [id number] : 4Acct:[id number] Age/Sex: 68 / MADM Date: 10/19/24 Loc: HO.CT Attending Dr: Katja Loya PA-C Ordering Physician: Katja Loya PA-C Date of Service: 10/19/24 Procedure(s): CT lung screening Accession Number(s): [id number] cc: Stu Salmeron MD; Katja Loya PA-C Report Number: [id number]: Total DLP = 61.00 mGy-cm Reason for Exam: Z87.891 - Personal history of nicotine dependence CLINICAL HISTORY: Z87.891 - Personal history of nicotine dependence CT lung cancer screening (LDCT) Comparison: None provided Technique: Axial CT images of the chest using low-dose technique. Referring provider counseled the patient on shared decision-making for LDCT screening. Additional counseling was provided on smoking cessation. Effective radiation dose total: DLP 49.4 mGycm, CTDIvol 1.4 mGy. Findings: Lung: No evidence of pneumonia or edema. Mild apical predominant emphysema. Mild bibasilar scarring. No suspicious pulmonary nodules. Mildly prominent pre cardiac lymph node measuring 13 mm short axis. Coronary artery calcifications: Mild Limited upper abdomen: Pancreatic calcifications. Other: None IMPRESSION: 1. Anterior mediastinal adenopathy. LungRADS 4A - Suspicious:PET-CT examination is recommended. 2. Chronic pancreatitis. ##L4A## This document has been electronically signed by: Pilar Daniel MD on 10/19/2024 17:13:45 Dictated By: Pilar Daniel MD Signed By: <Electronically signed by Pilar Daniel MD in OV> 10/19/241713 DD/ 12 TD/TT: 10/19/241712 Stone Mason: [facility] External Provider IMG CT PROCEDURES Final Result * Lipid Panel, Standard (07/03/2024 12:00 AM EDT) Triglycerides 55 <150 mg/dL [facility] Comment:Desirable Triglyceri de: less than 150 mg/dLBorderline High Triglyceride 150-199 mg/dLHigh Triglyceride: 200-499 mg/dLVery High Triglyceride: greater than or equal to 5OO mg/dL Cholesterol 140 <200 mg/dL [facility] Comment:Desirable Cholestero l: less than 200 mg/dLBorderline High Cholesterol: 200-239 mg/dLHigh Cholesterol: greater than 239 mg/dL LDL Cholesterol Calculated 78 <100 mg/dL [facility] Comment:Desirable LDL: less than 100 mg/dLNear Optimal/Above Optimal LDL: 110- 129 mg/dLBorderline High LDL: 130-159 mg/dLHigh LDL: 160-189 mg/dLVery High LDL: greater than or equal to 190 mg/dL HDL Cholesterol 51 >40 mg/dL [facility] Comment:Desirable HDL: great er than 40 mg/dL Note: This HDL assay may give artificially low results in patients with liver disease. Blood Venous blood specimen / Unknown 07/03/2024 07/03/2024 us Stu Salmeron MD LAB BLOOD ORDERABLES Final Result [facility] [address] [place] [address] [phone] * (ABNORMAL) Colonoscopy (12/09/2020) Anatomical Region Laterality Modality Endoscopy Narrative 12/09/2020 Colonoscopy done on 12-09-20: Tubular adenomas of the ascending colon and sigmoid colon ( biopsy confirmed) us Historical Provider ENDOSCOPY PROCEDURE ORDER KAYLEE Final Result from Last 3 Months or Most Recently Relevant to Health Maintenance Insurance MEDICARE [facility] STANDARD Care Teams Rn Pacu Relationship Specialty Start Date End Date Stu Salmeron MD [address] [place] [address] KATRINA [place] [address] PCP - General Internal Medicine 08/21/19
--- OUTSIDE RECORDS SUMMARY | 2024-12-13 11:12 | XMS_ITS | Encounter Summary ---
Author Organization [employer] Address [address] [place] [address] [place] [address] Care Team Providers Care Oracle Database Developer Name Role Phone Stu Salmeron MD Primary Care Provider [phone]- [phone] Reason for Visit * Reason Onset Date Comments Referral 08/18/2022 Encounter Details Date Type Department Care Team ([facility] Contact Info) Description 08/18/[address] [facility] CHC MED & PEDS [address] [place], [place] [phone] Stu Salmeron MD [address] [place] [address] Referral Social History Tobacco Use Types Packs/Day [...] referral made on 08/12/2022 for Orthopaedic Surgery. Food Beverage Server sees that referral is still pending. Please contact pt at [phone] documented in this encounter Plan of Treatment Upcoming Encounters Date Type Department Care Team (Late st Contact Info) Description 02/04/2025 10:00 AM EST Clinical Support [facility] MED & PEDS [address] [place] [address] documented as of this encounter Visit Diagnoses Not on filedocumented in this encounter Care Teams Oracle Database Developer Relationship Specialty Start Date End Date Stu Salmeron MD [address] [place] [address] PCP - General Internal Medicine 08/21/19 documented as of this encounter
[2024-12-14 07:52] LABS: ~HepC Num1 7.35 S/CO (0.00-0.79); ~Hepatitis C Antibody Reactive (Nonreactive)
[2024-12-17 20:53] LABS: HCV Log PCR <1.18 NOT DETECTED Log IU/mL (NOT DETECTED); HepC Viral Load <15 NOT DETECTED IU/mL (NOT DETECTED)
== END 2024-12-13 09:52 | disposition home or self-care (01) ==
LOC: HO.CHCLDS 09:51
PROVIDERS: Visit Provider Family Medicine
DX: B18.2 Chronic viral hepatitis C (principal)
CPT/HCPCS: 36415; 86803; 87522

== ENCOUNTER 2025-01-22 08:35 | Outpatient (REF) | payer MEDICARE, MEDICAID, SELFPAY ==
--- NOTE | ~2025-01-22 | CT_ITS ---
EXAMINATION: CT CHEST WITH CONTRAST CLINICAL INFORMATION: Mediastinal adenopathy. R 59.0 COMPARISON: Correlated to CT lung screening dated October 19, 2024. TECHNIQUE: Multidetector volumetric CT imaging of the chest was obtained after the administration of 65 mL of Omnipaque 350 intravenous contrast without immediate adverse reactions. Axial MIP volume rendering provided. Sagittal and coronal reformatted images were obtained. This CT examination was performed using dose optimization techniques as appropriate, variously including the following: *Automated exposure control *Adjustment of mA and/or kV according to patient size (this includes techniques or standardized protocols for targeted exams where dose is matched to indication/reason for exam; i.e. extremities or head) *Use of iterative reconstruction technique DLP: 142 mGy-cm FINDINGS: CLASSIFIER TENDER: Hyperinflated lungs. Cardiomediastinal silhouette size is normal. S-shaped curvature of the thoracolumbar spine. Metallic plate lower cervical spine no fully included. Patient's large body habitus. Upper extremities at the size of the head. LUNGS: Hyperinflated lungs. Peribronchial septal thickening and linear attenuation abnormalities, lingula, right middle lung lobe, lung bases and to a lesser extent right upper lung lobe. There are a few scattered less than 2 mm calcified pulmonary nodules, both lungs. Respiratory airways patent. Centrilobular emphysematous changes, mostly upper lung lobes. MEDIASTINUM: Mild prominent mediastinal lymph nodes, the largest in the right precarinal/right mainstem bronchus measures 14 mm and the anterior mediastinum measures 15 mm. No thoracic aortic aneurysm or dissection. Calcified plaques in the thoracic aorta wall and its main branches. No pericardial effusion. Mild prominent left ventricle. Thyroid gland is not enlarged. Calcified plaques in the mitral valve, small size. Air-fluid level in the intrathoracic esophagus... PLEURA: No calcified pleural plaques. No pneumothorax. No hemothorax. No pleural effusion. AXILLA: Vascular clips in the right axillary region with scarring. Asymmetric volume loss of the right breast and thickening of the right pectoralis muscles. UPPER ABDOMEN: Sutures in the stomach. Punctate calcifications in the body and uncinate process of the pancreatic parenchyma. OSSEOUS STRUCTURES: Multilevel spondylosis throughout the axial skeleton. Metallic plate likely related to an anterior cervical fusion lower cervical spine no fully included in the [id number]. Osteopenia versus osteoporosis. S-shaped curvature of the thoracolumbar spine. Degenerative changes in the glenohumeral joints, right greater than the left shoulder. No acute rib fracture. No gross lytic or blastic lesions. . 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 Probable prior granulomatous disease process. Concerning hypertensive cardiomyopathy in the correct clinical settings. Atherosclerosis disease. Postsurgical and posttreatment changes, right breast and right axillary dissection. Consider exophytic medial dysmotility and or gastroesophageal reflux. Chronic pancreatitis.. Fleischner guidelines were followed. Electronically signed by: Zana Marie MD 01/22/2025 09:45 AM LORI
--- OUTSIDE RECORDS SUMMARY | 2025-01-22 09:10 | XMS_ITS | Encounter Summary ---
Author Organization [email or web address] Address [address] [place] [address] Care Team Providers Care Realtime Court Reporter Name Role Phone Stu Salmeron MD Primary Care Provider [phone] [phone] Reason for Referral * Consultation (Routine) - Closed Specialty Diagnoses / Procedures Referred By Contted t Referred To Contact Family Medicine Diagnoses Chronic hepatitis C without hepatic coma (HCC) Stu Salmeron MD [address] [place] [address] Phone: tel: fax: Referral ID Status Reason Start Date Expiration Date V isits Requested Visits Authorized [id number] Closed Specialty Services Required 07/05/2024 07/05/2025 1 1 Encounter Details Date Type Department Care Team ([facility] st Contact Info) Description 07/05/2024 Orders Only [facility] CHC MED & PEDS [address] [place] [address] Stu Salmeron MD [address] [place], [place] [phone] Chronic hepatitis C without hepatic coma (CMS/HCC) [...] Description 02/04/2025 10:00 AM EST Clinical Support [facility] MED & PEDS [address] [place] [address] Scheduled Referrals Name Type Priority Associated Diagnoses Order Schedule Referral to [facility] Infectious Disease (HIV & Hep C) Outpatient [...] documented as of this encounter Care Teams Realtime Court Reporter Relationship Specialty Start Date End Date Stu Salmeron MD [address] [place] [address] PCP - General Internal Medicine 08/21/19 documented as of this encounter
--- OUTSIDE RECORDS SUMMARY | 2025-01-22 09:10 | XMS_ITS | Encounter Summary ---
Author Organization [employer] Address [address] [place] [address] [place] [address] Care Team Providers Care Gyroscopic Instrument Tester Name Role Phone Stu Salmeron MD Primary Care Provider [phone]- [phone] Reason for Visit * Reason Onset Date Comments Referral 08/18/2022 Encounter Details Date Type Department Care Team ([facility] Contact Info) Description 08/18/2022 Telephone [facility] CH[facility] MED & PEDS [address] [place], [place] [phone] Stu Salmeron MD [address] [place] [address] Referral Social History Tobacco Use Types Packs/Day [...] referral made on 08/12/2022 for Orthopaedic Surgery. Shot Hole Driller sees that referral is still pending. Please contact pt at [phone] documented in this encounter Plan of Treatment Upcoming Encounters Date Type Department Care Team (Late st Contact Info) Description 02/04/2025 10:00 AM EST Clinical Support [facility] MED & PEDS [address] [place] [address] documented as of this encounter Visit Diagnoses Not on filedocumented in this encounter Care Teams Gyroscopic Instrument Tester Relationship Specialty Start Date End Date Stu Salmeron MD [address] [place] [address] PCP - General Internal Medicine 08/21/19 documented as of this encounter
--- OUTSIDE RECORDS SUMMARY | 2025-01-22 09:10 | XMS_ITS | Encounter Summary ---
Author Organization [facility] Address [address] [place] [address] 7[address] [place] [address] Care Team Providers Care Rn Diabetes Name Role Phone Stu Salmeron MD Primary Care Provider +1 [phone] Encounter Details Date Type Department Care Team (Late st Contact Info) Description 07/07/2023 Orders Only [facility] MED & PEDS [address] [place] [address] Provider, MD Loli Social History Tobacco Use [...] Description 02/04/2025 10:00 AM EST Clinical Support [facility] MED & PEDS [address] [place] [address] documented as of this encounter Procedures Procedure [...] documented as of this encounter Care Teams Rn Diabetes Relationship Specialty Start Date End Date Stu Salmeron MD [address] [place] [address] PCP - General Internal Medicine 08/21/19 documented as of this encounter
--- OUTSIDE RECORDS SUMMARY | 2025-01-22 09:10 | XMS_ITS | Encounter Summary ---
Author Organization [employer] [facility] Address [address] [place] [address] Care Team Providers Care Anesthesiology Physician Name Role Phone Stu Salmeron MD Primary Care Provider [phone]- [phone] Reason for Visit * Reason Comments Med Refill Encounter Details Date Type Department Care Team (Late st Contact Info) Description 02/18/2022 Refill [facility] MEDICINE [address] [place], [place] [phone] Stu Salmeron MD [address] [place] [address] Tinea cruris Social History Tobacco Use Types [...] Description 02/04/2025 10:00 AM EST Clinical Support [facility] CHC MED & PEDS [address] [place], [place] [phone] documented as of this encounter Visit Diagnoses Diagnosis Tinea cruris Dermatophytosis of groin and perianal area documented in this encounter Care Teams Anesthesiology Physician Relationship Specialty Start Date End Date Stu Salmeron MD [address] [place] [address] PCP - General Internal Medicine 08/21/19 documented as of this encounter
--- OUTSIDE RECORDS SUMMARY | 2025-01-22 09:10 | XMS_ITS | Clinical Summary ---
Author Organization [employer] Address [address] [facility] [facility] [address] [place] [address] Care Team Providers Care Fire Extinguisher Repairer Name Role Phone Stu Salmeron MD Primary Care Provider [phone] Allergies Active Allergy Reactions Criticality Noted Date [...] Active Problems Problem Noted Date Diagnosed Date Hepatitis C virus infection cured after antiviral drug therapy 12/31/2024 Chronic pancreatitis (CMS/HCC) 10/31/2024 History of right breast cancer 10/31/2024 Chronic hepatitis C without hepatic coma 025 BPH (benign prostatic hyperplasia) 07/16/2022 Resolved Problems Problem Noted Date Diagnosed Date Resolved Date Generalized osteoarthritis 10/10/2019 0 07/03/2024 Encounters Date Type Department Care Team Description 12/31/2024 1:00 PM EST Telemedicine [facility] [address] [place] [phone] Ruth Barger MD Chronic hepatitis C without hepatic coma (HCC) (Primary Dx); Hepatitis C virus infection cured after antiviral drug therapy 12/31/2024 Travel 12/28/2024 Telephone [facility] [address] [place] [address] Soila Candelaria 12/24/2024 Travel 12/18/2024 Telephone [facility] [address] [place] [address] Indy Epstein, LERO[place] 12/14/[address] [address] Indy Epstein, LEROY 12/13/2024 Orders Only [address] [address] Ruth Barger MD 12/12/2024 Orders Only [address] [address] Indy Epstein, electrician ship hepatitis C without hepatic coma (HCC) (Primary Dx) 11/29/[address] [address] Uriah Givens, LEROY Hep C Management 10/31/2024 11:15 AM EDT Telemedicine [facility] [address] [place] [address] Stu Salmeron MD Other chronic pancreatitis (CMS/HCC) (Primary Dx); History of right breast cancer 10/31/2024 Travel 10/28/2024 Travel 10/25/2024 1:00 PM EDT Clinical Support [facility] [address] [place] [address] Stephania Hall, [place] Encounter for immunization 10/25/2024 Travel 10/24/[address] [address] Indy Epstein, [place]EROY from Last 3 Months Immunizations Immunization Administration [...] Description 02/04/2025 10:00 AM EST Clinical Support [facility] [address] [place] [address] Health Maintenance Due Date Last Done Comments CT Colonography 1955 FIT DNA/Cologuard 1955 FIT 1955 FOBT 1955 Sigmoidoscopy 1955 Hepatitis A Vaccines (2 of 2 - Risk 2-dose series) 01/24/2025 07/25/2024 Hepatitis B Vaccines (3 of 3 - Risk 3-dose series) 01/24/2025 10/25/2024, 08/24/2024, 07/25/2024 COVID-19 Vaccine ( season) 2025 10/27/2024, 10/23/2023, 10/26/2022, Additional history exists Alcohol/Substance Use Screening 07/03/2025 07/03/2024 Depression Screening 07/03/2025 07/03/2024, 07/04/19 SDOH Screening 07/03/2025 07/03/2024 Lung Cancer Screening 10/19/2025 10/19/2024 Tobacco Screening 10/31/2025 10/31/2024 Lipid Panel 07/03/2029 07/03/2024 Colonoscopy 12/09/2030 12/09/2020, 12/09/2020 Colorectal Cancer Screening 12/09/2030 DTaP/Tdap/Td Vaccines (2 - Td or Tdap) 07/03/2034 07/03/2024 Zoster Vaccines Completed 06/05/2022, 01/07, 10/30/2021 Pneumococcal Vaccine: 50+ Years Completed 11/11/2022 Influenza Vaccine Completed 10/03/2024, , 10/26/2022, Additional history exists RSV Patients [...] Procedure Name Priority Date/Time Associated Diagnosis Comments HEPATITIS C VIRAL RNA, QUANTITATIVE, REAL-TIME PCR Routine 12/13/2024 9:53 AM EST HEPATITIS C AB W/REFL TO HCV RNA, QN, PCR Routine 12/13/2024 9:53 AM EST LDCT LUNG SCREENING Routine 10/19/2024 5 :13 PM EDT LIPID PANEL, STANDARD Routine 07/03/2024 12:00 AM EDT Microcytic anemia Primary hypertension COLONOSCOPY Routine 12/09/2020 from Last 3 Months or Most Recently Relevant to Health Maintenance Results * Hepatitis C Viral RNA, Quantitative, Real-Time PCR (12/13/2024 9:53 AM EST) Hepatitis C Viral Load <15 NOT DETECTED NOT DETECTED IU/mL [facility] HCV Log PCR <1.18 NOT DETECTED NOT DETECTED Log IU/mL [facility] Comment:For additional infor mation, please refer tohttp://education.Smarterer/faq/SGB30e8(This link is being provided for informational/educational purposes only.)THIS TEST WAS PERFORMED AT:[employer] [id number] RIGGINS MD 12/13/2024 9:53 AM EST 12/14/2024 9:17 AM EST Ruth Barger MD LAB BLOOD ORDERABLES Final R esult Performing Organization Address [facility] Co de Phone Number [facility] [address] [place] [phone] * (ABNORMAL) Hepatitis C Antibody with Reflex to HCV, RNA, Quantitative, Real- Time PCR (12/13/2024 9:53 AM EST) Hepatitis C Antibody Reactive( A) Nonreactive [facility] Comment:Presumptive evidence of antibodies to HCV. 12/13/2024 9:53 AM EST 12/13/2024 2:02 PM EST Ruth Barger MD LAB BLOOD ORDERABLES Final R esult Performing Organization Address [facility] Co de Phone Number [facility] [address] [place] [phone] * CT Lung Screening Low dose (10/19/2024 5:13 PM EDT) Anatomical Region Laterality Modality Lung Computed Tomogra phy 10/19/2024 5:13 PM EDT Narrative 10/19/2024 5:14 PM EDT [address] [address] [address] Scan Report Signed Patient: Mark River MR#: [id number] : 1955 Acct:[id number] Age/Sex: 68 / M ADM Date: 10/19/24 Loc: HO.CT Attending Dr: Katja Loya PA-C Ordering Physician: Katja Loya PA-C Date of Service: 10/19/24 Procedure(s): CT lung screening Accession Number(s): [id number] cc: Stu Salmeron MD; Katja Loya PA-C Report Number: [id number]: Total DLP = 61.00 mGy-cm Reason for [...] in OV> 10/19/241713 DD/ 12 TD/TT: 10/19/241712 Offset Pressman: Procedure Note Donotuseinterpreter, Image - 10/19/[address] [address] [address] Scan Report Signed Patient: Mark River [facility]#: [id number] : 4Acct:[id number] Age/Sex: 68 / MADM Date: 10/19/24 Loc: HO.CT Attending Dr: Katja Loya PA-C Ordering Physician: Katja Loay PA-C Date of Service: 10/19/24 Procedure(s): CT lung screening Accession Number(s): [id number] cc: Stu Salmeron MD; Katja Loya PA-C Report Number: [id number]: Total DLP = 61.00 mGy-cm Reason for [...] in OV> 10/19/241713 DD/ 12 TD/TT: 10/19/241712 Offset Pressman: [facility] External Provider IMG CT PROCEDURES Final Result * Lipid Panel, Standard (07/03/2024 12:00 AM EDT) Triglycerides 55 <150 mg/dL [facility] Comment:Desirable Triglyceri de: less than 150 mg/dLBorderline High Triglyceride 150-199 mg/dLHigh Triglyceride: 200-499 mg/dLVery High Triglyceride: greater than or equal to 5OO mg/dL Cholesterol 140 <200 mg/dL [facility] Comment:Desirable Cholestero l: less than 200 mg/dLBorderline High Cholesterol: 200-239 mg/dLHigh Cholesterol: greater than 239 mg/dL LDL Cholesterol Calculated 78 <100 mg/dL [facility] Comment:Desirable LDL: less than 100 mg/dLNear Optimal/Above Optimal LDL: 110- 129 mg/dLBorderline High LDL: 130-159 mg/dLHigh LDL: 160-189 mg/dLVery High LDL: greater than or equal to 190 mg/dL HDL Cholesterol 51 >40 mg/dL [facility] Comment:Desirable HDL: great er than 40 mg/dL Note: This HDL assay may give artificially low results in patients with liver disease. Blood Venous blood specimen / Unknown 07/03/2024 07/03/2024 Stu Salmeron MD LAB BLOOD ORDERABLES Final Result Performing Organization Address City/State/[facility] Co de Phone Number [facility] [address] [place] [address] [phone] * (ABNORMAL) Colonoscopy (12/09/2020) Anatomical Region Laterality Modality Endoscopy Narrative 12/09/2020 Colonoscopy done on 12-09-20: Tubular adenomas of the ascending colon and sigmoid colon ( biopsy confirmed) Historical Provider ENDOSCOPY PROCEDURE ORDER KAYLEE Final Result from Last 3 Months or Most Recently Relevant to Health Maintenance Insurance [place]IC[place] [address] [place] [id number] [facility] STANDARD Care Teams Fire Extinguisher Repairer Relationship Specialty Start Date End Date Stu Salmeron MD [address] [place] [address] [place] [phone] PCP - General Internal Medicine 08/21/19
--- OUTSIDE RECORDS SUMMARY | 2025-01-22 09:10 | XMS_ITS | Encounter Summary ---
Author Organization [employer] Address [address] [place] [address] Care Team Providers Care Mud Mill Tender Name Role Phone Stu Salmeron MD Primary Care Provider [phone] Reason for Visit * Reason Onset Date Comments Results 08/01/2023 Encounter Details Date Type Department Care Team ([facility] Contact Info) Description 08/01/2023 Telephone [facility] [address] [place], [place] [phone] Stu Salmeron MD [address] [place] [address] Results Social History Tobacco Use Types Packs/Day [...] will be talking with Dr. Maciel, the [facility] oncology provider he is seeing. Pt reports he is taking tomaxafin for his treatment along with pt starting iron, Mg, and zinc supplements since pt's last PCP visit on 06/30. Pt is also having surgery on 08/03 to remove two hernias due to the referral made on 06/30. Pt will be waiting for call about what [facility] and [facility] discuss as the next step in the course of action. Caller statedto pt that PCP bone plant supervisor would reach back to pt when there [...] couple weeks ago. [facility] Please call pt to clarify. documented in this encounter Plan of Treatment Upcoming Encounters Date Type Department Care Team (Late st Contact Info) Description 02/04/2025 10:00 AM EST Clinical Support [facility] [address] [place] [address] documented as of this encounter Visit Diagnoses Not on filedocumented in this encounter Additional Health Concerns Assessment Noted Time PHQ-9 Depression Total Score: 0 06/30/19 24 11:39 AM EDT documented as of this encounter Care Teams Mud Mill Tender Relationship Specialty Start Date End Date Stu Salmeron MD [address] [place] [address] PCP - General Internal Medicine 08/21/19 documented as of this encounter
--- OUTSIDE RECORDS SUMMARY | 2025-01-22 09:10 | XMS_ITS | Encounter Summary ---
Author Organization [employer] Address [address] [place] [address] 7 [place] [address] Care Team Providers Care Metal Casting Trades Worker Name Role Phone Stu Salmeron MD Primary Care Provider [phone] Encounter Details Date Type Department Care Team (Late st Contact Info) Description 06/23/2023 Orders Only [facility] [address] [place], [place] [phone] Stu Salmeron MD [address] [place] [address] Benign prostatic hyperplasia, unspecified whether lower urinary [...] [facility] [address] [place] [address] Scheduled Orders Name Type Priority Associated Diagnoses [...] (06/30/2023 12:20 PM EDT) Slide Review VERIFIED [facility] 06/30/2023 12:2 0 PM EDT 06/30/2023 2:20 PM EDT us Stu Salmeron MD LAB BLOOD ORDERABLES Final Result [facility] [address] [place] [address] [phone] documented in this encounter Visit Diagnoses Diagnosis Benign prostatic hyperplasia, unspecified whether lower urinary tract symptoms present- Primary Generalized osteoarthritis Generalized osteoarthrosis, involving multiple sites Left wrist pain Pain in joint, forearm Elevated BP without diagnosis of hypertension documented in this encounter Care Teams Metal Casting Trades Worker Relationship Specialty Start Date End Date Stu Salmeron MD [address] [place] [phone] PCP - General Internal Medicine 08/21/19 documented as of this encounter
[2025-01-22 10:44] LABS: Creatinine POC 0.7 mg/dL (0.5-1.4); GFR POC > 60
== END 2025-01-22 08:36 | disposition home or self-care (01) ==
LOC: HO.CT 08:35
PROVIDERS: PCP Internal Medicine; Visit Provider Physician Assistant Medical
DX: R59.0 Localized enlarged lymph nodes (principal); Z87.891 Personal history of nicotine dependence
CPT/HCPCS: 71260; 82565

== ENCOUNTER → 2025-01-22 08:36 | Outpatient (BNV) | payer MEDICARE, MEDICAID, SELFPAY | PROVIDERS: PCP Internal Medicine; Visit Provider Radiology Diagnostic Radiology | DX: J43.9 Emphysema, unspecified (principal); K86.1 Other chronic pancreatitis; I25.10 Atherosclerotic heart disease of native coronary artery without angina pectoris | CPT/HCPCS: 71260 ==